=== PATIENT | male | born 1965 | race Caucasian/White ===

== ENCOUNTER 2021-07-22 12:30 | Inpatient (IN) | payer OTHER ==
[~2021-07-22] VITALS: Ht 172.7 cm; Wt 97.4 kg
[2021-07-22 12:30] VITALS: BP 123/64
[~2021-07-22 12:30] MED LIST: ALPRAZolam 0.25 MG (XANAX) TAB PO PRN; BISACODYL 10 MG SUPP (DULCOLAX) PR PRN; CALCIUM CARBONATE 500 MG (TUMS) TAB.CHEW PO PRN; DOCUSATE SODIUM 100 MG (COLACE) CAP PO PRN; FLEET ENEMA ADULT 1 EA BTL PR PRN; LACTULOSE SYRUP 10GM/15ML (ENULOSE) 30ML UDC PO PRN; LOPERAMIDE 2 MG (IMODIUM) TABLET PO PRN; MELATONIN 3 MG TABLET PO PRN; ONDANSETRON 4 MG (ZOFRAN) ORAL DISSOLVE TAB PO PRN; diphenhydrAMINE 25 MG TAB (BENADRYL) PO PRN; guaiFENesin/CODEINE (ROBITUSSIN AC) 10ML UDC PO PRN
[2021-07-22] MEDS ORDERED: LISI20TA26 PO (12:46)
[2021-07-22] MEDS ORDERED: ENOX30DI4 SQ (12:46)
[2021-07-22] MEDS ORDERED: ACHD5005 PO (12:46)
[2021-07-22] MEDS ORDERED: ATOR40TA70 PO (12:46)
[2021-07-22] MEDS ORDERED: MTP25TSR PO (12:46)
[2021-07-22] MEDS ORDERED: METF-397 PO (12:46)
--- NOTE | 2021-07-22 12:56 | PM&R Post Admission Assessment ---
PM&R HP Date of Visit: Jul 22, 2021 Time of Visit: 12:50 History of Present Illness Chief Complaint: Debility following a horse injury HPI: This is a 55yoWM who fell off a horse resulting in a pelvic sacral fracture. Status post ORIF of the pelvic fracture closed reduction of the pelvic ring and sacrum non-weight bearing of the lower extremities. He did have a urethral injury with scrotal edema. Catheter will remain for 4 weeks. He does have diabetes but he doesn't check his sugars much and it's been doing very well. 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 Past Glppels-Gewtka-Hqgfpx Hx Past Med/Social Hx: Reviewed Nursing Past Med/Soc Hx, Reviewed and Corrections made Patient Social History Marrital Status: single Employed/Student: employed Alcohol Use: Denies Use Smoking Status: Never a Smoker Past Medical History Surgeries: Orthopedic Cardiac: Hypertension Endocrine: Diabetes, Non-Insulin dep PM&R Allergy/Meds/Data Review Allergies Coded Allergies: No Known Drug Allergies (Unverified , 07/22/21) Home Medications Scheduled Atorvastatin Calcium (Atorvastatin Calcium), 40 MG PO HS, (Reported) Enoxaparin Sodium (Enoxaparin Sodium), 30 MG SQ Q12H, (Reported) Lisinopril (Lisinopril), 20 MG PO DAILY, (Reported) Metformin HCl (Metformin HCl), 500 MG PO BID, (Reported) Metoprolol Succinate (Metoprolol Succinate), 25 MG PO DAILY, (Reported) Scheduled PRN Hydrocodone/Acetaminophen (Hydrocodone-Acetamin 5-325 mg), 1 TAB PO Q4H PRN for PAIN-MODERATE (5-7), (Reported) Current Medications Current Medications Reviewed Review of Systems Constitutional: see HPI, malaise, weakness EENTM: no symptoms reported Respiratory: no symptoms reported Cardiovascular: no symptoms reported Gastrointestinal: no symptoms reported Genitourinary: pain Musculoskeletal: back pain, joint pain Skin: no symptoms reported Psychiatric/Neurological: No Symptoms Reported All Other Systems Reviewed Negative Unless Noted: Yes Physical Exam Physical Exam Vital Signs Capillary Refill : Height, Weight, BMI Height: '" Weight: lbs. oz. kg; BMI Method: General Appearance: No Apparent Distress, WD/WN Eyes: Bilateral Eye Normal Inspection, Bilateral Eye PERRL HEENT: PERRL/EOMI, Normal ENT Inspection, Pharynx Normal Neck: Full Range of Motion, Normal Inspection, Non Tender, Supple, Carotid Bruit Respiratory: Chest Non Tender, Lungs Clear, Normal Breath Sounds, No Accessory Muscle Use, No Respiratory Distress Cardiovascular: Regular Rate, Rhythm, No Edema, No Gallop, No JVD, No Murmur, Normal Peripheral Pulses Gastrointestinal: Normal Bowel Sounds, No Organomegaly, No Pulsatile Mass, Non Tender, Soft Back: Normal Inspection, Decreased Range of Motion Extremity: Normal Capillary Refill, Normal Inspection, Non Tender, No Calf Tenderness, No Pedal Edema, Other (limited ROM lower extremities due to pain) Neurologic/Psychiatric: Alert, Oriented x3, Normal Mood/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, 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 Norm as Tested, Abnormal Gait, Motor Weakness Skin: Normal Color, Warm/Dry Lymphatic: No Adenopathy PM&R Medical Assessment & Plan REHAB/MEDICAL ASSESSMENT AND PLAN: REHAB IMPAIRMENT GROUP: Pelvic fracture ETIOLOGIC DIAGNOSIS: Pelvic fracture The comorbidities that impact the patients function and/or functional outcome by: DM, elevated BMI, Hematuria, cabrera cath in place 4 weeks, urethral injury REHAB PLAN: The patient is being admitted to our comprehensive inpatient rehabilitation facility and can tolerate the intensity of service consisting of at least: 180 minutes of therapy a day, 5 out of 7 days a week Rehab treatment will consist of: PT OT will focus on regaining function with ambulatory skills along with increasing independence in ADL's in order to return home with family The patient/family has a good understanding of our discharge process and will benefit from an interdisciplinary inpatient rehabilitation program. The patient has potential to make improvement and is in need of at least two of the following multidisciplinary therapies including but not limited to physical, occupational, speech, and prosthetics and orthotics. Additionally the patient will need services from respiratory, nutritional services, wound care, psychology, etc. (Customize this to each patient). Given the patients complex condition and risk of further medical complications, rehabilitation services cannot be safely or effectively provided at a lower level of care such as a jail facility. BARRIERS TO DISCHARGE: weight bearing status ESTIMATED LOS: 7 days DISPOSITION: Home RELEVANT CHANGES SINCE PREADMISSION SCREENING: I have compared the patients medical and functional status at the time of the preadmission screening and there are: no changes PROGNOSIS: Good REHABILITATION GOALS: 1. PT OT will focus on regaining function with ambulatory skills along with increasing independence in ADL's in order to return home with family All the above goals were reviewed with the patient and he/she is in agreement. By signing this document, I acknowledge that I have personally performed a full physical examination on this patient within 24 hours of admission to this inpatient rehabilitation facility and have determined the patient to be able to tolerate the above course of treatment at an intensive level for a reasonable period of time. I will be completing a detailed individualized Plan of Care for this patient by day #4 of the patients stay based upon the Preadmission Screen, the Post-Admission Evaluation, and the therapy evaluations. Admission Dx/Comorbidities: (1) Pelvic fracture ICD Codes: S32.9XXA - Fracture of unspecified parts of lumbosacral spine and pelvis, initial encounter for closed fracture (2) Diabetes ICD Codes: E11.9 - Type 2 diabetes mellitus without complications (3) BMI 33.0-33.9,adult ICD Codes: Z68.33 - Body mass index [BMI] 33.0-33.9, adult Assessment/Plan Assessment and Plan Assess & Plan/Chief Complaint Assessment: Pelvic fracture from fall off horse Urethral injury maintained with cabrera cath for 4 weeks DM HTN Elevated BMI DVT PPx Plan: Rehab protocol Cabrera cath DM management Urology consult JORGE CRONIN DO Jul 22, 2021 12:56
--- OUTSIDE RECORDS SUMMARY | 2021-07-22 12:59 | XMS REPORT | Clinical Summary ---
Author Author [facility] Organization [facility] Address Unknown Phone Unavailable Care Team Providers Care Washroom Operator Name Role Phone Mehdi Restrepo MD Unavailable Lawrence Singleton RN Unavailable Unavailable Chela Ruelas MD PCP Kaelyn Jacobo RN Unavailable Unavailable Source Comments Some departments are not documenting in the electronic medical record. If you d o not see the information that you expected, contact Release of Information in [facility] Information Management department at [phone] for further assistan ce in locating additional records.[facility] Allergies Comments Active Allergy Reactions Severity Noted Date Penicillins HIVES 03/31/2014 Medications End Date Status Medication Sig Dispensed Refills Start Date Active OXYCODONE Take by 0 HCL/ACETAMINOPHEN mouth. (PERCOCET PO) Active HYDROcodone-acetaminophen Take 1-2 Tabs 80 Tab 0 (+) (NORCO) 7.5-325 mg by mouth 4 tablet every 4-6 hours as needed for Pain. Active Problems Problem Noted Date Trimalleolar fracture of right ankle 03/31/2014 Resolved Problems Problem Noted Date Resolved Date Wound dehiscence 06/02/2014 06/19/2014 Medical History Medical History Date Comments Fracture Family History Medical History Relation Name Comments Cancer Mother Cancer Paternal Grandmother Relation Name Status Comments Mother Paternal Grandmother Social History Date Tobacco Use Types Packs/Day Years Used Current Every Day Smoker Cigarettes 0.5 Smokeless Tobacco: Never Used Tobacco Cessation: Ready to Quit: No; Co unseling Given: Yes Comments Alcohol Use Standard Drinks/Week Yes [id number] (1 sta ndard drink = 0.6 oz pure alcohol) Sex Assigned at Date Recorded Not on file Last Filed Vital Signs Reading Time Taken Comments Vital Sign 135/85 08/07/2014 8:49 AM DIPLOMATIC OFFICER Blood Pressure 90 08/07/2014 8:49 AM DIPLOMATIC OFFICER Pulse 36.6 C (97.9 F) 06/04/2014 2:40 PM DIPLOMATIC OFFICER Temperature - - Respiratory Rate 100% 06/04/2014 2:40 PM DIPLOMATIC OFFICER Oxygen Saturation - - Inhaled Oxygen Concentration 90.7 kg (200 lb) 08/07/2014 8:49 AM DIPLOMATIC OFFICER Weight 172.7 cm (5' 8") 08/07/2014 8:49 AM DIPLOMATIC OFFICER Height 30.41 08/07/2014 8:49 AM DIPLOMATIC OFFICER Body Mass Index Plan of Treatment Health Maintenance Due Date Last Done Comments HIV SCREENING 1982 DTAP/TDAP VACCINES (1 - 1985 Tdap) HEPATITIS C SCREENING 1985 PHYSICAL (COMPREHENSIVE) 1985 EXAM COLORECTAL CANCER 2017 SCREENING SHINGLES RECOMBINANT 2017 VACCINE (1 of 2) INFLUENZA VACCINE 02/07/2021 Results Not on filefrom Last 3 Months Advance 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
--- OUTSIDE RECORDS SUMMARY | 2021-07-22 12:59 | XMS REPORT | Clinical Summary ---
Author Author [facility] Organization [facility] Address Unknown Phone Unavailable Care Team Providers Care [employer] Division Manager Name Role Phone No, Pcp COMMUNITY RELATIONS LIAISON PCP Unavailable Allergies No known active allergies Medications Not on file Active Problems Not on file Encounters Not on filefrom Last 3 Months Immunizations Not on file Social History Date Tobacco Use Types Packs/Day Years Used Current Every Day Smoker Comments Alcohol Use Standard Drinks/Week Not Asked 0 (1 standard drink = 0.6 o z pure alcohol) Sex Assigned at Date Recorded Not on file Last Filed Vital Signs Reading Time Taken Comments Vital Sign 124/80 11/16/2014 11:01 AM CDT Blood Pressure 100 11/16/2014 11:01 AM CDT Pulse 36.3 C (97.4 F) 11/16/2014 11:01 AM CDT Temperature 16 11/16/2014 11:01 AM CDT Respiratory Rate 96% 11/16/2014 11:01 AM CDT Oxygen Saturation - - Inhaled Oxygen Concentration - - Weight - - Height - - Body Mass Index Plan of Treatment Not on file Goals Not on file Implants Not on file Procedures Not on filefrom Last 3 Months Results Not on filefrom Last 3 Months Additional Health Concerns Not on file Insurance Type Payer Benefit Subscriber ID Effective Phone Address Plan / Dates Group [place] [id number] [facility] Present (Home) [place] [address] Care Teams Start Date End Date [employer] Division Manager Relationship Specialty 11/16/14 No, Pcp, COMMUNITY RELATIONS LIAISON PCP - General N/A Do not use
--- NOTE | 2021-07-22 14:01 | Physical Therapy Evaluation ---
PT Evaluation-General Medical Diagnosis Admission Date Jul 22, 2021 at 12:30 Medical Diagnosis: PELVIC FX, S/P ORIF Onset Date: Jul 13, 2021 Therapy Diagnosis Therapy Diagnosis: impaired mobility, endurance Weight Bear Status Right Lower Extremity: Right Non Weight Bearing Left Lower Extremity: Left Non Weight Bearing also no bending, twisting, and 10# lifting limit Referral Physician: Sandra Avery DO Reason for Referral: Evaluation/Treatment Medical History Pertinent Medical History: DM, HTN Additional Medical History hyperlipidemia, COVID (2020) Current History fall from horse without LOC, fractured pelvic and sacral bones. s/p ORIF pelvic fracture, closed reduction percutaneous fixation posterior pelvic ring and sacrum. Urethral injury, scrotal edema Reviewed History: Yes Social History Home: Single Level Current Living Status: Alone Entry Into Home: Stairs With Railing Patient states he has several stairs to enter his home but that he would not be able to go there because it is not built right to get around in a wheelchair, he says most likely he will have to go stay with one of his siblings Prior Prior Level of Function SCALE: Activities may be completed with or without assistive devices. 1-Giqzgdddfw-farhfuz completes the activity by him/herself with no assistance from a helper. 5-Set-up or Clean-up Assistance-helper sets up or cleans up; patient completes activity. Fleming assists only prior to or following the activity. 4-Supervision or Touching Assistance-helper provides verbal cues and/or touching/steadying and/or contact guard assistance as patient completes activity. Assistance may be provided throughout the activity or intermittently. 3-Partial/Moderate Assistance-helper does LESS THAN HALF the effort. Fleming lifts, holds or supports trunk or limbs, but provides less than half the effort. 2-Substantial/Maximal Assistance-helper does MORE THAN HALF the effort. Fleming lifts or holds trunk or limbs and provides more than half the effort. 2-Btcvojwbq-himtcb does ALL the effort. Patient does none of the effort to complete the activity. Or, the assistance of 2 or more helpers is required for the patient to complete the activity. If activity was not attempted, code reason: 7-Patient Refused. 9-Not Applicable-not attempted and the patient did not perform the activity before the current illness, exacerbation or injury. 10-Not Attempted due to Environmental Limitations-(lack of equipment, weather restraints, etc.). 88-Not Attempted due to Medical Conditions or Safety Concerns. Bed Mobility: 6 Transfers (B,C,W/C): 6 Gait: 6 Stairs: 6 Indoor Mobility (Ambulation): Independent Stairs: Independent PT Evaluation-Current Subjective Patient in bed pre tx, agrees to PT, has no complaints of pain at rest, states that he mostly just has pain with pressure caused by bending over or sitting on a hard surface. Will be co-treating with OT due to poor patient mobility, endurance, coordinate UE and LE during activity, safety and reduce risk of falls. Pt/Family Goals to be independent at home Objective Patient Orientation: Person, Place, Situation ROM/Strength ROM Lower Extremities WNL Strength Lower Extremities LLE (hip flexion 3/5, knee flexion 5/5, knee extension 5/5, dorsiflexion 5/5), RLE (hip flexion 3/5, knee flexion 5/5, knee extension 5/5, dorsiflexion 5/5) Sensory Vision: Functional Hearing: Impaired Sensation Right Lower Extremit: Intact Sensation Left Lower Extremity: Intact Transfers Roll Left & Right (QC): 6 Sit to Lying (QC): 4 Lying to Sitting/Side of Bed(Q: 4 Sit to Stand (QC): 88 Chair/Jhl-kt-Mxgaf Xfer(QC): 4 Toilet Transfer (QC): 4 Car Transfer (QC): 4 Patient performs rolling with independence, supine <-> sit with SBA (using a leg deicer element winder machine), sliding board transfer with SBA (also does this for toilet and car transfer), needs occasional cues for better board placement or safety positioning Gait Does the Patient Walk?: No and Walking Goal NOT indicated Walk 10 feet (QC): 88 Walk 50 ft with 2 Turns(QC): 88 Walk 150 ft (QC): 88 Walking 10ft/uneven surface-QC: 88 Wheelchair Training Does the Pt Use a Wheelchair?: Yes Distance: 600' Wheel 50 ft with 2 turns (QC): 6 Wheel 150 ft (QC): 6 Type of Wheelchair: Manual Patient can propel a manual WC 600' with independence, including down and up a ramp, he is strong enough to propel forward using only his arms going up the ramp, however he does get SOB fairly quickly and needs frequent rest breaks Stairs 1 Step (curb) (QC): 88 4 Steps (QC): 88 12 Steps (QC): 88 Balance Sitting Static: Normal Sitting Dynamic: Normal Picking up an Object (QC): 88 Treatment PT performed bed mobility and transfers, WC mobility, trunk strengthening and balance training with balloon activity, positioning and safety during dressing, OT performed dressing, balloon activity, UE positioning and safety during activity. Assessment/Needs Patient in WC at bedside post tx with a late lunch, has nurse call, phone, tray, all needs met. Patient has impaired mobility, endurance. He can perform a sliding board transfer with SBA. Rehab Potential: Fair PT Short Term Goals Short Term Goals Time Frame: Jul 29, 2021 Roll Left & Right: 6 Sit to lyin Lying to sitting on side of be: 5 Chair/duw-ct-wunhi transfer: 5 PT Websphere Administrator Goals Websphere Administrator Goals PT Jail Goals Time Frame: Aug 12, 2021 Roll Left & Right (QC): 6 Sit to Lying (QC): 6 Lying-Sitting on Side/Bed(QC): 6 Sit to Stand (QC): 88 Chair/Hym-rt-Pkknv Xfer(QC): 6 Toilet Transfer (QC): 6 Car Transfer (QC): 6 Does the Patient Walk: No and Walking Goal NOT indicated Walk 10 feet (QC): 88 Walk 50ft with 2 Turns (QC): 88 Walk 150 ft (QC): 88 Walking 10ft on Uneven Surface: 88 1 Step (curb) (QC): 88 4 Steps (QC): 88 12 Steps (QC): 88 Picking up an Object (QC): 88 Wheel 50 feet with 2 turns (QC: 6 Wheel 150 feet: 6 PT Plan Problem List Problem List: Activity Tolerance, Functional Strength, Safety, Balance, Gait, Transfer, Bed Mobility, ROM Treatment/Plan Treatment Plan: Continue Plan of Care Treatment Plan: Bed Mobility, Education, Functional Activity [place], Functional Strength, Group Therapy, Safety, Therapeutic Exercise, Transfers Treatment Duration: Aug 12, 2021 Frequency: At least 5 of 7 days/Wk (IRF) Estimated Hrs Per Day: 1.5 hours per day Patient and/or Family Agrees t: Yes Safety Risks/Education Patient Education: Transfer Techniques, Reviewed Precautions, Correct Positioning, W/C Management, Safety Issues Teaching Recipient: Patient Teaching Methods: Demonstration, Discussion Response to Teaching: Reinforcement Needed Discharge Recommendations Plan Patient will perform bed mobility and transfer training, balance and endurance training, functional strengthening, WC mobility training, and education, to improve functional mobility and independence at home. Therapy Discharge Recommendati: Scheduled Assistance, Home & Family, Post Acute PT Time/GCodes Time In: 1230 Time Out: 1410 Total Billed Treatment Time: 90 Total Billed Treatment 1 visit EVM 10' EX 15' FA 65' MARNIE KNIGHT PT Jul 22, 2021 14:01
--- NOTE | 2021-07-22 14:03 | Occupational Therapy Eval ---
OT Evaluation-General/PLF Medical Diagnosis Admission Date Jul 22, 2021 at 12:30 Medical Diagnosis: pelvic fxs s/p ORIF Onset Date: Jul 12, 2021 Therapy Diagnosis Therapy Diagnosis: decreased ADL status Precautions Comments no bending, lifting >10 lb, or twisting Weight Bear Status Weight Bearing Restriction: Non Weight Bearing Location Restriction: LE Bilateral Referral Physician: Gena Rocha Reason: Evaluation/Treatment Medical History Pertinent Medical History: DM, HTN Additional Medical History hyperlipidemia, COVID (2020) Current History fall from horse without LOC, fractured pelvic and sacral bones. s/p ORIF pelvic fracture, closed reduction percutaneous fixation posterior pelvic ring and sacrum. Urethral injury, scrotal edema Social History Home: Single Level Current Living Status: Alone Entry Into Home: Stairs With Railing (several steps into house) ADL-Prior Level of Function SCALE: Activities may be completed with or without assistive devices. 4-Rgkqylwcll-otrpwar completes the activity by him/herself with no assistance from a helper. 5-Set-up or Clean-up Assistance-helper sets up or cleans up; patient completes activity. [place] assists only prior to or following the activity. 4-Supervision or Touching Assistance-helper provides verbal cues and/or touching/steadying and/or contact guard assistance as patient completes activity. Assistance may be provided throughout the activity or intermittently. 3-Partial/Moderate Assistance-helper does LESS THAN HALF the effort. [place] lifts, holds or supports trunk or limbs, but provides less than half the effort. 2-Substantial/Maximal Assistance-helper does MORE THAN HALF the effort. [place] lifts or holds trunk or limbs and provides more than half the effort. 8-Lcxhkikbv-rdsnfr does ALL the effort. Patient does none of the effort to complete the activity. Or, the assistance of 2 or more helpers is required for the patient to complete the activity. If activity was not attempted, code reason: 7-Patient Refused. 9-Not Applicable-not attempted and the patient did not perform the activity before the current illness, exacerbation or injury. 10-Not Attempted due to Environmental Limitations-(lack of equipment, weather restraints, etc.). 88-Not Attempted due to Medical Conditions or Safety Concerns. ADL PLOF Comments Pt reports IND with ADLs and functional mobility at PLOF, no AD/AE. He indicates his home is not appropriate for a w/c, so he may have to go to a siblings house. His house has a tub/shower. Self Care: Independent Functional Cognition: Independent DME/Equipment: Tub/Shower OT Current Status Subjective Pt in bed, agreeable to OT tx and OT/PT cotreat. Reports some pain in pelvis, but does not provide pain rating. Mental Status/Objective Patient Orientation: Person, Place, Time, Situation Attachments: Hoffman Catheter Current Glasses/Contacts: No Hearing Aids: Yes Dentures/Partials: No Hand Dominance: Right Upper Extremity ROM WFL, BUE shoulder flexion to approx 160 degrees Upper Extremity Coordination WFL Upper Extremity Sensation WFL, pt denies tingling/numbness Upper Extremity Strength WFL, BUE grossly 5/5 ADL-Treatment Eating (QC): 6 (IND with lunch) Oral Hygiene (QC): 7 Shower/Bathe Self (QC): 7 Upper Body Dressing (QC): 5 (set up pick pulling machine operator shirt.) Lower Body Dressing (QC): 3 (Min A. Assist to thread LLE, pt threaded RLE using wet process miller head, then rolled side to side for pant hike at bed level.) On/Off Footwear (QC): 5 (set up with wet process miller head and sock aide with gripper socks.) Toileting Hygiene (QC): 7 Other Treatments OT evaluation complete. OT/PT cotreat due to skill of 2 clinicians required which a rehabilitation team lead could not perform in order to focus on dynamic sitting balance, w/c mobility, transfers, and higher level sitting balance tasks. OT focused on UE placement, cues for sequencing and safety, and ADLs, PT focused on LE placement, transfers/mobility, and sitting balance. Pt completed LE dressing at bed level, using a wet process miller head, then transferred supine to sit EOB using a leg spindraw operator. Pt used SB to transfer to w/c with SBA. Pt performed w/c mobility around ARU common area, to elevators, up/down hallway of 1st floor and up/down ramp. Pt returned to ARU, transferring to therapy mat using SB. Pt completed footwear using AE. In order to increase dynamic sitting balance and reaching, pt utilized RUE to reach for rings in various planes, unsupported on EOB. Pt reports increased pain in pelvic region. Pt used SB to transfer back to w/c where he was more supported with back rest. Pt then used BUEs to complete balloon toss, x3 rounds reaching in various planes. Pt propelled w/c back to his room, lunch had arrived. Post tx, pt in w/c eating lunch, call light in reach and all needs met. Rolling in bed independently, SBA supine <-> sit with SBA using leg spindraw operator, SBA SB transfers, occasional cues required for board placement and safety of pos itioning. W/C mobility 500' independently. Education OT Patient Education: Correct positioning, Energy conservation, Exercise program, Modified ADL techniques, Progress toward Goal/Update tx plan, Purpose of tx/functional activities, Rehab process Teaching Recipient: Patient Teaching Methods: Discussion Response to Teaching: Verbalize Understanding OT Short Term Goals Short Term Goals Time Frame: Jul 28, 2021 Toileting hygiene: 4 Shower/bathe self: 4 Lower body dressin OT Harness And Bag Inspector Goals Harness And Bag Inspector Goals Time Frame: Aug 06, 2021 Eating (QC): 6 Oral Hygiene (QC): 6 Toileting Hygiene (QC): 6 Shower/Bathe Self (QC): 6 Upper Body Dressing (QC): 6 Lower Body Dressing (QC): 6 On/Off Footwear (QC): 6 Additional Goals: 1-Demonstrate ADL Tasks, 2-Verbalize Understanding, 3- ImproveStrength/[place] 1=Demonstrate adherence to instructed precautions during ADL tasks. 2=Patient will verbalize/demonstrate understanding of assistive devices/modifications for ADL. 3=Patient will improve strength/tolerance for activity to enable patient to perform ADL's. OT Education/Plan Problem List/Assessment Assessment: Decreased Activ Tolerance, Impaired Funct Balance, Impaired I ADL's, Impaired Self-Care Skills Discharge Recommendations Plan/Recommendations: Continue POC Equpiment Recommendations-D/C: Extended Bath Bench, Bath Chair Comment Bath bench vs bath chair depending on discharge location. Treatment Plan/Plan of Care Patient would benefit from OT for education, treatment and training to promote independence in ADL's, mobility, safety and/or upper extremity function for ADL's. Plan of Care: ADL Retraining, Functional Mobility, Group Exercise/Act as Ind, UE Funct Exercise/Act Treatment Duration: Aug 06, 2021 Frequency: At least 5 of 7 days/Wk (IRF) Estimated Hrs Per Day: 1.5 hours per day Agreement: Yes Rehab Potential: Good Time/GCodes Start Time: 12:40 Stop Time: 14:10 Total Time Billed (hr/min): 90 Billed Treatment Time 8902-0236 OT eval (10'), [id number] OT/PT cotreat (80') 1, EVL (10'), ADL (20'), FA 4 (60') YAHIR CABRERA OT Jul 22, 2021 14:03
[2021-07-22] MEDS: HYDROcodone/APAP 5 MG/325 MG (LORTAB) TAB PO PRN ×2 (15:21→19:44)
[2021-07-22] MEDS: metFORMIN 500 MG (GLUCOPHAGE) TAB PO SCH (18:10)
[2021-07-22] MEDS: ENOXAPARIN 30 MG/0.3 ML (LOVENOX) SYR SQ SCH (18:10)
[2021-07-22] MEDS: SENNA W/DOCUSATE (SENOKOT S) TABLET PO SCH (19:43)
[2021-07-22] MEDS: DOCUSATE SODIUM 100 MG (COLACE) CAP PO SCH (20:04)
[2021-07-22] MEDS: polyethylene glycoL POWDER 17 GM (MIRALAX) PACK PO SCH (20:05)
[2021-07-22 20:36] VITALS: BP 136/76
[2021-07-23] MEDS: HYDROcodone/APAP 5 MG/325 MG (LORTAB) TAB PO PRN ×3 (02:19→21:10)
--- NOTE | 2021-07-23 05:47 | Individualized Plan of Care ---
Individualized Plan of Care Rehab Nursing IPOC Order Admission Date Jul 22, 2021 at 12:30 Current Orders Orders Admission Order(Inpt,Obs,Sdc) (07/22/21 10:43) Vital Signs: Per Unit Policy ( 08,16,00 (07/22/21 10:43) Segundo Perez , (07/22/21 10:43) Sequential Compression Device (07/22/21 10:43) Nurse Practitioner Physician Assistant-Inpt Rehab Con (07/22/21 10:43) Rehab Nursing Orders-Ipoc (07/22/21 10:43) Physical Therapy Rehab Orders (07/22/21 10:43) Occupational Therapy Rehab Ord (07/22/21 10:43) Speech Therapy Rehab Orders (07/22/21 10:43) Cbc With Automated Diff (07/23/21 06:00) Comprehensive Metabolic Panel (07/23/21 06:00) Precautions (Aru) (07/22/21 10:43) Weekly Weight WEEK (07/22/21 10:43) Rehab-Intensity Of Therapy (07/22/21 10:43) Initiate Admission Nursing Pro .admission (07/22/21 10:43) Alprazolam Tablet (Xanax Tablet) (07/22/21 10:45) Calcium Carbonate Chew Tablet (Antacid C (07/22/21 10:45) Diphenhydramine Tablet (Benadryl Tablet) (07/22/21 10:45) Docusate Sodium Capsule (Colace Capsule) (07/22/21 21:00) Docusate Sodium Capsule (Colace Capsule) (07/22/21 10:45) Bisacodyl Suppository (Dulcolax Supposit (07/22/21 10:45) Lactulose Oral Solution (Enulose Oral So (07/22/21 10:45) Na Phos/Na Biphos Enema (Fleet Enema Jose (07/22/21 10:45) Guaifenesin/Codeine Syrup (Robitussin Ac (07/22/21 10:45) Loperamide Tablet (Imodium Tablet) (07/22/21 10:45) Melatonin Tablet (Melatonin Tablet) (07/22/21 10:45) Polyethylene Glycol Powder Pkt (Miralax (07/22/21 21:00) Ondansetron Oral Dissolve Tab (Zofran (07/22/21 10:45) Senna S Tablet (Senokot S Tablet) (07/22/21 21:00) Acetaminophen Tablet/Caplet (Tylenol T (07/22/21 10:45) Code/Resuscitation (07/22/21 10:43) Sequential Compression Device ONCE (07/22/21 10:43) Initiate Admission Nursing Pro .admission (07/22/21 10:43) Admission Arrival Bed Request (07/22/21 12:38) General/Regular (07/22/21 Lunch) Atorvastatin Tablet (Lipitor Tablet) (07/22/21 21:00) Enoxaparin Injection (Lovenox Injection) (07/22/21 18:00) Hydrocodone/Apap 5/325 Tablet (Lortab 5 (07/22/21 13:00) Lisinopril Tablet (Zestril Tablet) (07/23/21 09:00) Metformin Tablet (Glucophage Tablet) (07/22/21 18:00) Metoprolol Succinate (Xl) Tab (Toprol Xl (07/23/21 09:00) Patient Visit (07/22/21 ) Pt Eval Moderate Complexity (07/22/21 ) Exercise Therap, Ea 15 Min (07/22/21 ) Functional Activities, Ea 15 (07/22/21 ) Nursing Communication (Order) (07/22/21 15:42) Follow-Up Appointment (07/22/21 16:58) Patient Visit (07/23/21 ) Exercise Therap, Ea 15 Min (07/23/21 ) Functional Activities, Ea 15 (07/23/21 ) Patient Visit (07/23/21 ) Exercise Therap, Ea 15 Min (07/23/21 ) Rehab Nursing Orders: Ongoing Assess. of Cognitive Status, Ongoing Assess. of Function Status, Bladder Management, Bladder Scan, Bladder Training, Bowel Management, Bowel Training, Disease Management & Educaiton, DVT Prophylaxis, Fall Prevention, Fluid/Electrolyte/Nutrition Mgmt, Infection Prevention, Medication Management & Education, Management of Risks & Complications, Management of Skin Intergrity, Nutrition Management, Pain Management, Patient/Family Support, Safety Management, Wound Management Intensity of Therapy to be met Patient to be seen: Min.3h per day/5 of 7d PT IPOC Problem List: Activity Tolerance, Functional Strength, Safety, Balance, Gait, Transfer, Bed Mobility, ROM Treatment Plan: Continue Plan of Care Bed Mobility, Education, Functional Activity [place], Functional Strength, Group Therapy, Safety, Therapeutic Exercise, Transfers Treatment Duration: Aug 12, 2021 Frequency: At least 5 of 7 days/Wk (IRF) Estimated Hrs Per Day: 1.5 hours per day OT IPOC Problems: Decreased Activ Tolerance, Impaired Funct Balance, Impaired I ADL's, Impaired Self-Care Skills OT Treatment, Training and Edu: Yes Plan of Care: ADL Retraining, Functional Mobility, Group Exercise/Act as Ind, UE Funct Exercise/Act Treatment Duration: Aug 06, 2021 Frequency: At least 5 of 7 days/Wk (IRF) Estimated Hrs Per Day: 1.[address] IPOC Speech Therapy Treatment Plan: Discontinue ST Treatment Duration: Jul 23, 2021 Frequency: Modified Program (IRF) Estimated Hrs Per Day: Other Nurse Practitioner Physician Assistant/Case Mgmt Nurse Practitioner Physician Assistant/Case Managemen: Discharge Planning Dietitian/Prawn Trawler Hand Dietitian/Prawn Trawler Hand to monitor nutritional status and make changes and/or recommendations as needed and work with speech pathology on dietary upgrades as the occur. Physician IPOC Medical Issues being managed closely and that require the 24 hour availability of a physician: Recent catastrophic injuries from horse fall will require close monitoring for DVT prophylaxis in addition for indwelling Hoffman catheter infectious risk monitoring Medical Issues: Bowel/Bladder Function, DVT Prophylaxis, Falls Precautions, Fluid/Electrolyte/Nutrition Balance, Infection Protection, Pain Management, Swallowing Precautions, Wound Care Brief Synthesis of Preadmission Screen, Post-Admission Evaluation, and Therapy Evaluations: PT and OT will focus on return of independent skills while nonweightbearing status along with wheelchair mobility skills. Medical Prognosis: Good Anticipated Length of Stay: 10 days JORGE CRONIN DO Jul 23, 2021 05:47
--- NOTE | 2021-07-23 05:47 | PM&R Progress Note ---
Subjective HPI/CC On Admission Date Seen by Provider: Jul 23, 2021 Time Seen by Provider: 10:00 Subjective/Events-last exam 07/23/2021: Patient doing really well Moving around pretty well with weightbearing restriction Cabrera catheter in place Pain is pretty well controlled Working with therapy Review of Systems General: Fatigue, Malaise Musculoskeletal: arm pain, hand pain Objective Exam Vital Signs Vital Signs Date Time Temp Pulse Resp B/P (MAP) Pulse Ox O2 Delivery O2 Flow Rate FiO2 07/23/21 20:20 91 Room Air 07/23/21 20:00 36.4 113 16 104/70 (81) Capillary Refill : General Appearance: No Apparent Distress, WD/WN HEENT: PERRL/EOMI, Normal ENT Inspection, Pharynx Normal Neck: Full Range of Motion, Normal Inspection, Non Tender, Supple, Carotid Bruit Respiratory: Chest Non Tender, Lungs Clear, Normal Breath Sounds, No Accessory Muscle Use, No Respiratory Distress Cardiovascular: Regular Rate, Rhythm, No Edema, No Gallop, No JVD, No Murmur, Normal Peripheral Pulses Gastrointestinal: Normal Bowel Sounds, No Organomegaly, No Pulsatile Mass, Non Tender, Soft Back: Normal Inspection, Decreased Range of Motion Extremity: Normal Capillary Refill, Normal Inspection, Non Tender, No Calf Tenderness, No Pedal Edema, Other (limited ROM lower extremities due to pain) Neurologic/Psychiatric: Alert, Oriented x3, Normal Mood/Affect, margin clerk II-XII Norm as Tested, Abnormal Gait, Motor Weakness Skin: Normal Color, Warm/Dry Lymphatic: No Adenopathy Results/Procedures Lab Laboratory Tests 07/23/21 05:53 Patient resulted labs reviewed. FIM Transfers Therapy Code Descriptions/Definitions Functional [place] Measure: 0=Not Assessed/NA 4=Minimal Assistance 1=Total Assistance 5=Supervision or Setup 2=Maximal Assistance 6=Modified [place] 3=Moderate Assistance 7=Complete IndependenceSCALE: Activities may be completed with or without assistive devices. 9-Votimhesjm-kskfjmj completes the activity by him/herself with no assistance from a helper. 5-Set-up or Clean-up Assistance-helper sets up or cleans up; patient completes activity. [place] assists only prior to or following the activity. 4-Supervision or Touching Assistance-helper provides verbal cues and/or touching/steadying and/or contact guard assistance as patient completes activity. Assistance may be provided throughout the activity or intermittently. 3-Partial/Moderate Assistance-helper does LESS THAN HALF the effort. [place] lifts, holds or supports trunk or limbs, but provides less than half the effort. 2-Substantial/Maximal Assistance-helper does MORE THAN HALF the effort. [place] lifts or holds trunk or limbs and provides more than half the effort. 9-Pltgpdaab-ccqoas does ALL the effort. Patient does none of the effort to complete the activity. Or, the assistance of 2 or more helpers is required for the patient to complete the activity. If activity was not attempted, code reason: 7-Patient Refused. 9-Not Applicable-not attempted and the patient did not perform the activity before the current illness, exacerbation or injury. 10-Not Attempted due to Environmental Limitations-(lack of equipment, weather restraints, etc.). 88-Not Attempted due to Medical Conditions or Safety Concerns. Roll Left to Right (QC): 6 Sit to Lying (QC): 4 Sit to Stand (QC): 88 Chair/Rjs-sr-Gqipp Xfer(QC): 4 Car Transfer (QC): 4 Gait Training Does the Patient Walk?: No and Walking Goal NOT indicated Walk 10 feet (QC): 88 Walk 50 ft with 2 Turns(QC): 88 Walk 150 ft (QC): 88 Walking 10ft/uneven surface-QC: 88 Wheelchair Training Does the Pt Use a Wheelchair?: Yes Distance: 600' Wheel 50 ft with 2 turns (QC): 6 Wheel 150 ft (QC): 6 Type of Wheelchair: Manual Stair Training 1 Step (curb) (QC): 88 4 Steps (QC): 88 12 Steps (QC): 88 Balance Picking up an Object (QC): 88 ADL-Treatment Eating (QC): 6 (IND with lunch) Oral Hygiene (QC): 7 Shower/Bathe Self (QC): 7 Upper Body Dressing (QC): 5 (set up bleach boiler puller shirt.) Lower Body Dressing (QC): 3 (Min A. Assist to thread LLE, pt threaded RLE using manifold builder, then rolled side to side for pant hike at bed level.) On/Off Footwear (QC): 5 (set up with manifold builder and sock aide with gripper socks.) Toileting Hygiene (QC): 7 Assessment/Plan Assessment and Plan Assess & Plan/Chief Complaint Assessment: Pelvic fracture from fall off horse Urethral injury maintained with cabrera cath for 4 weeks DM HTN Elevated BMI DVT PPx Plan: Rehab protocol Cabrera cath DM management Urology consult 07/23/2021: Rehab protocol Cabrera cath for 4 weeks due to urethral injury (1) Pelvic fracture (2) Diabetes (3) BMI 33.0-33.9,adult JORGE CRONIN DO Jul 23, 2021 05:46
[2021-07-23 06:49] LABS: BASOPHILS # (AUTO) 0.1 10^3/uL (0.0-0.1); BASOPHILS % (AUTO) 1 % (0-10); EOSINOPHILS # (AUTO) 0.2 10^3/uL (0.0-0.3); EOSINOPHILS % (AUTO) 1 % (0-10); HEMATOCRIT 35 % (40-54); LYMPHOCYTES # (AUTO) 2.3 10^3/uL (1.0-4.0); LYMPHOCYTES % (AUTO) 18 % (12-44); MEAN CORPUSCULAR HEMOGLOBIN 28 pg (25-34); MEAN CORPUSCULAR HGB CONC 32 g/dL (32-36); MEAN CORPUSCULAR VOLUME 88 fL (80-99); MEAN PLATELET VOLUME 9.4 fL (9.0-12.2); MONOCYTES # (AUTO) 1.2 10^3/uL (0.0-1.0); MONOCYTES % (AUTO) 9 % (0-12); NEUTROPHILS # (AUTO) 8.8 10^3/uL (1.8-7.8); NEUTROPHILS % (AUTO) 68 % (42-75); PLATELET COUNT 714 10^3/uL (130-400); WHITE BLOOD COUNT 12.9 10^3/uL (4.3-11.0)
[2021-07-23] MEDS: ENOXAPARIN 30 MG/0.3 ML (LOVENOX) SYR SQ SCH ×2 (06:49→17:27)
[2021-07-23 07:07] LABS: ALBUMIN 3.8 GM/DL (3.2-4.5); BILIRUBIN,TOTAL 0.6 MG/DL (0.1-1.0); CALCIUM 9.6 MG/DL (8.5-10.1); CREATININE SERUM 0.86 MG/DL (0.60-1.30); POTASSIUM 4.6 MMOL/L (3.6-5.0); TOTAL PROTEIN 7.9 GM/DL (6.4-8.2)
[2021-07-23 07:24] VITALS: BP 131/74
--- NOTE | 2021-07-23 08:40 | IRF PAI BIMS ---
BIMS BIMS IRF ABDULKADIR BIMS: IRF ABDULKADIR BIMS Response (Comments) Value Expression of Ideas and Wants (Verbal/Non Verbal) Without Difficulty 3 Understanding Verbal Content Understands 3 Should Brief Interview for Mental Status be Conducted Yes Repitition of Three Words Three 3 What year is it right now? Correct 0 What month is it right now? Accurate within 5 days 0 What week is it now? Correct 0 Recalls Socks Yes, No Cue Required 2 Recalls Blue Yes, No Cue Required 2 Recalls Bed Yes, No Cue Required 2 Total 15 Brief Interview/Mental Status: No YAHIR CABRERA OT Jul 23, 2021 08:40
[2021-07-23] MEDS: lisINopril 20 MG (PRINIVIL) TABLET PO SCH (08:50)
[2021-07-23] MEDS: SENNA W/DOCUSATE (SENOKOT S) TABLET PO SCH ×2 (08:50→20:13)
[2021-07-23] MEDS: metFORMIN 500 MG (GLUCOPHAGE) TAB PO SCH ×2 (08:50→17:27)
[2021-07-23] MEDS: polyethylene glycoL POWDER 17 GM (MIRALAX) PACK PO SCH ×2 (08:50→20:13)
[2021-07-23] MEDS: DOCUSATE SODIUM 100 MG (COLACE) CAP PO SCH ×2 (08:50→20:12)
--- NOTE | 2021-07-23 09:38 | Occupational Ther Daily Note ---
OT Current Status-Daily Note Subjective Pt supine in bed. Pt states he's in a lot of pain but is agreeable to OT tx. Pt did not verbalize pain rating. Mental Status/Objective Patient Orientation: Person, Place, Time, Situation Attachments: Hoffman Catheter ADL-Treatment Therapy Code Descriptions/Definitions Functional [place] Measure: 0=Not Assessed/NA 4=Minimal Assistance 1=Total Assistance 5=Supervision or Setup 2=Maximal Assistance 6=Modified [place] 3=Moderate Assistance 7=Complete IndependenceSCALE: Activities may be completed with or without assistive devices. 5-Xdyvqtxvjm-plkdfqf completes the activity by him/herself with no assistance from a helper. 5-Set-up or Clean-up Assistance-helper sets up or cleans up; patient completes activity. [place] assists only prior to or following the activity. 4-Supervision or Touching Assistance-helper provides verbal cues and/or touching/steadying and/or contact guard assistance as patient completes activity. Assistance may be provided throughout the activity or intermittently. 3-Partial/Moderate Assistance-helper does LESS THAN HALF the effort. [place] lifts, holds or supports trunk or limbs, but provides less than half the effort. 2-Substantial/Maximal Assistance-helper does MORE THAN HALF the effort. [place] lifts or holds trunk or limbs and provides more than half the effort. 4-Pnpgchcsv-ujyjqj does ALL the effort. Patient does none of the effort to complete the activity. Or, the assistance of 2 or more helpers is required for the patient to complete the activity. If activity was not attempted, code reason: 7-Patient Refused. 9-Not Applicable-not attempted and the patient did not perform the activity before the current illness, exacerbation or injury. 10-Not Attempted due to Environmental Limitations-(lack of equipment, weather restraints, etc.). 88-Not Attempted due to Medical Conditions or Safety Concerns. Oral Hygiene (QC): 6 (IND seated at sink.) Bathing Location: L Arm, R Arm, L Upper Leg, R Upper Leg, L Lower Leg (including foot), R Lower Leg (including foot), Chest, Abdomen, Buttocks, Perineal Area Shower/Bathe Self (QC): 2 (Sponge bath in bed, max A needed to clean buttocks, back and feet. ) Upper Body Dressing (QC): 5 (Setup) Lower Body Dressing (QC): 5 (Setup with threading catheter, pt able to use AE at bed level) On/Off Footwear: 5 (set up.) Other Treatment Pt supine in bed. Pt doffed gown and socks. Pt completed sponge bath in bed, max A needed to clean buttocks, feet and back. Pt donned shirt, pants and socks, AE. Pt transitioned to W/C from bed using SB, transitioned to bathroom to complete oral care, shaving and washed his face. [place] due to skill of 2 clinicians required which a veterans rehabilitation counselor could not perform in order to increase activity tolerance, core strength, and dynamic sitting balance. OT focused on using AE, UE placement, cues for sequencing/safety, PT focused on mobility/transfers. Pt propelled W/C to therapy gym, he completed unsupported lateral bending to place objects on the table. Pt propelled W/C around room and then around commons area to pick and shovel man mejia bags at various levels using a marriage counselor minister to work on unsupported bending and using AE with reaching to complet the functional task. Pt propelled W/C to therapy gym and completed the arm bike to work on arm strengthening and activity tolerance, 25 ariza, 10 mins, 1 rest break needed, while sitting without lateral and posterior support. Post OT tx, pt in W/C with PT, all needs met. Education OT Patient Education: Correct positioning, Energy conservation, Exercise program, Modified ADL techniques, Progress toward Goal/Update tx plan, Purpose of tx/functional activities, Reviewed precautions, Rehab process, Use of adapted equipment Teaching Recipient: Patient Teaching Methods: Demonstration, Discussion Response to Teaching: Verbalize Understanding, Return Demonstration OT Short Term Goals Short Term Goals Time Frame: Jul 28, 2021 Toileting hygiene: 4 Shower/bathe self: 4 Lower body dressin OT Fpc Goals Fpc Goals Time Frame: Aug 06, 2021 Eating (QC): 6 Oral Hygiene (QC): 6 Toileting Hygiene (QC): 6 Shower/Bathe Self (QC): 6 Upper Body Dressing (QC): 6 Lower Body Dressing (QC): 6 On/Off Footwear (QC): 6 Additional Goals: 1-Demonstrate ADL Tasks, 2-Verbalize Understanding, 3- ImproveStrength/[place] 1=Demonstrate adherence to instructed precautions during ADL tasks. 2=Patient will verbalize/demonstrate understanding of assistive devices/modifications for ADL. 3=Patient will improve strength/tolerance for activity to enable patient to perform ADL's. OT Education/Plan Problem List/Assessment Assessment: Decreased Activ Tolerance, Impaired Funct Balance, Impaired I ADL's, Impaired Self-Care Skills Discharge Recommendations Plan/Recommendations: Continue POC Treatment Plan/Plan of Care Patient would benefit from OT for education, treatment and training to promote independence in ADL's, mobility, safety and/or upper extremity function for ADL's. Plan of Care: ADL Retraining, Functional Mobility, Group Exercise/Act as Ind, UE Funct Exercise/Act Treatment Duration: Aug 06, 2021 Frequency: At least 5 of 7 days/Wk (IRF) Estimated Hrs Per Day: 1.5 hours per day Agreement: Yes Rehab Potential: Good Time/GCodes Start Time: 08:00 Stop Time: 09:30 Total Time Billed (hr/min): 90 Billed Treatment Time [place] (30) 1, ADL 3 (50), FA 2 (30), EX (10) YAHIR CABRERA OT Jul 23, 2021 09:38
--- NOTE | 2021-07-23 09:57 | Physical Therapy Daily Note ---
PT Daily Note-Current Subjective Patient in WC in therapy gym pre tx, already working with OT, agrees to PT, has 1/10 pain in pelvis. Will be co-treating with OT due to poor patient mobility, increasing pain with activity, coordinate UE and LE with activity, safety and reduce risk of falls, work on core strength and balance. Appearance Patient on toilet post tx, has nurse call to use when done. Mental Status Patient Orientation: Person, Place, Situation Transfers SCALE: Activities may be completed with or without assistive devices. 2-Trlxqcdwbg-votldbq completes the activity by him/herself with no assistance from a helper. 5-Set-up or Clean-up Assistance-helper sets up or cleans up; patient completes activity. [place] assists only prior to or following the activity. 4-Supervision or Touching Assistance-helper provides verbal cues and/or touching/steadying and/or contact guard assistance as patient completes activity. Assistance may be provided throughout the activity or intermittently. 3-Partial/Moderate Assistance-helper does LESS THAN HALF the effort. [place] lifts, holds or supports trunk or limbs, but provides less than half the effort. 2-Substantial/Maximal Assistance-helper does MORE THAN HALF the effort. [place] lifts or holds trunk or limbs and provides more than half the effort. 7-Omlvkkqxv-pghigi does ALL the effort. Patient does none of the effort to complete the activity. Or, the assistance of 2 or more helpers is required for the patient to complete the activity. If activity was not attempted, code reason: 7-Patient Refused. 9-Not Applicable-not attempted and the patient did not perform the activity before the current illness, exacerbation or injury. 10-Not Attempted due to Environmental Limitations-(lack of equipment, weather restraints, etc.). 88-Not Attempted due to Medical Conditions or Safety Concerns. Toilet Transfer (QC): 3 Weight Bearing Right Lower Extremity: Right Non Weight Bearing Left Lower Extremity: Left Non Weight Bearing also no bending, twisting, and 10# lifting limit Wheelchair Training Does the Pt Use a Wheelchair?: Yes Wheel 50 ft with 2 turns (QC): 6 Wheel 150 ft (QC): 6 Type of Wheelchair: Manual 300'x2 Exercises Seated Therapy Exercises: Ankle pumps, Hip flexion, Hip abd/add (with ball and RTB) Seated Reps: 20 LAQ alternating for 5 min, reaching activity to work on core strength and balance without trunk support and arm bike without trunk support (10min) Treatments PT worked on transfers, LE strengthening, trunk strengthening and balance, WC mobility, OT worked on UE positioning and safety during activity, reaching activity, UE strengthening Assessment Current Status: Fair Progress improving transfers PT Short Term Goals Short Term Goals Time Frame: Jul 29, 2021 Roll Left & Right: 6 Sit to lyin Lying to sitting on side of be: 5 Chair/kkp-ya-arpmk transfer: 5 PT Penitentiary Goals Penitentiary Goals PT Penitentiary Goals Time Frame: Aug 12, 2021 Roll Left & Right (QC): 6 Sit to Lying (QC): 6 Lying-Sitting on Side/Bed(QC): 6 Sit to Stand (QC): 88 Chair/Qqd-lg-Lrlyv Xfer(QC): 6 Toilet Transfer (QC): 6 Car Transfer (QC): 6 Does the Patient Walk: No and Walking Goal NOT indicated Walk 10 feet (QC): 88 Walk 50ft with 2 Turns (QC): 88 Walk 150 ft (QC): 88 Walking 10ft on Uneven Surface: 88 1 Step (curb) (QC): 88 4 Steps (QC): 88 12 Steps (QC): 88 Picking up an Object (QC): 88 Wheel 50 feet with 2 turns (QC: 6 Wheel 150 feet: 6 PT Plan Problem List Problem List: Activity Tolerance, Functional Strength, Safety, Balance, Gait, Transfer, Bed Mobility, ROM Treatment/Plan Treatment Plan: Continue Plan of Care Treatment Plan: Bed Mobility, Education, Functional Activity [place], Functional Strength, Group Therapy, Safety, Therapeutic Exercise, Transfers Treatment Duration: Aug 12, 2021 Frequency: At least 5 of 7 days/Wk (IRF) Estimated Hrs Per Day: 1.5 hours per day Patient and/or Family Agrees t: Yes Safety Risks/Education Patient Education: Transfer Techniques, Correct Positioning, W/C Management, Safety Issues Teaching Recipient: Patient Teaching Methods: Demonstration, Discussion Response to Teaching: Reinforcement Needed Time/GCodes Time In: 0900 Time Out: 1000 Total Billed Treatment Time: 60 Total Billed Treatment 1 visit EX 30' FA 30' co-treated from [id number] MARNIE KNIGHT PT Jul 23, 2021 09:57
--- NOTE | 2021-07-23 10:47 | CONSULTATION REPORT ---
DATE OF SERVICE: 07/23/2021 ATTENDING PHYSICIAN: Sandra Avery DO SUMMARY: After reviewing the patient's record, interviewing him and examining him, this is a 56-year-old white man who apparently had an accident thrown by horse, sustained urethral injury secondary to a pelvic fracture and Hoffman catheter put in and order from the urologist who did that is to keep it until he sees him back in his office at [place] two weeks after that. IMPRESSION: Urethral trauma secondary to horse injury. PLAN: Leave Hoffman in until he sees his urologist and decide with him. We will see him p.r.n. If any problem, he will need to go back to his urologist because I do not deal with these injuries. Job ID: [id number] DocumentID: [id number] Dictated Date: 07/23/2021 08:43:53 Shoe Repair Supervisor Date: 07/23/2021 10:46:29 Dictated By: ABRAN DONNELLY MD
--- NOTE | 2021-07-23 12:45 | Physical Therapy Daily Note ---
PT Daily Note-Current Subjective Patient in bed pre tx, agrees to PT, voices no complaints of pain at rest. Appearance Patient in bed post tx with nurse call, phone, tray, all needs met. Mental Status Patient Orientation: Person, Place, Situation Transfers SCALE: Activities may be completed with or without assistive devices. 1-Bxnzudixwg-bczwami completes the activity by him/herself with no assistance from a helper. 5-Set-up or Clean-up Assistance-helper sets up or cleans up; patient completes activity. [place] assists only prior to or following the activity. 4-Supervision or Touching Assistance-helper provides verbal cues and/or to uching/steadying and/or contact guard assistance as patient completes activity. Assistance may be provided throughout the activity or intermittently. 3-Partial/Moderate Assistance-helper does LESS THAN HALF the effort. [place] lifts, holds or supports trunk or limbs, but provides less than half the effort. 2-Substantial/Maximal Assistance-helper does MORE THAN HALF the effort. [place] lifts or holds trunk or limbs and provides more than half the effort. 7-Tiebcvkvw-fmcbpp does ALL the effort. Patient does none of the effort to complete the activity. Or, the assistance of 2 or more helpers is required for the patient to complete the activity. If activity was not attempted, code reason: 7-Patient Refused. 9-Not Applicable-not attempted and the patient did not perform the activity before the current illness, exacerbation or injury. 10-Not Attempted due to Environmental Limitations-(lack of equipment, weather restraints, etc.). 88-Not Attempted due to Medical Conditions or Safety Concerns. Weight Bearing Right Lower Extremity: Right Non Weight Bearing Left Lower Extremity: Left Non Weight Bearing also no bending, twisting, and 10# lifting limit Exercises Supine Ex: Ankle pumps, Quad Set, Glut sets, Heel Slides, Short Arc Quads, Straight leg raise, Hip abd/add Supine Reps: 20 (AAROM on the left side with hip abd/add, SLR, SAQ, and HS) Treatments LE strengthening Assessment Current Status: Fair Progress pain in left pelvis with hip movement PT Short Term Goals Short Term Goals Time Frame: Jul 29, 2021 Roll Left & Right: 6 Sit to lyin Lying to sitting on side of be: 5 Chair/bpk-yo-sbdbm transfer: 5 PT Lgsw Goals Lgsw Goals PT Nursing Home Goals Time Frame: Aug 12, 2021 Roll Left & Right (QC): 6 Sit to Lying (QC): 6 Lying-Sitting on Side/Bed(QC): 6 Sit to Stand (QC): 88 Chair/Ozx-ao-Dynug Xfer(QC): 6 Toilet Transfer (QC): 6 Car Transfer (QC): 6 Does the Patient Walk: No and Walking Goal NOT indicated Walk 10 feet (QC): 88 Walk 50ft with 2 Turns (QC): 88 Walk 150 ft (QC): 88 Walking 10ft on Uneven Surface: 88 1 Step (curb) (QC): 88 4 Steps (QC): 88 12 Steps (QC): 88 Picking up an Object (QC): 88 Wheel 50 feet with 2 turns (QC: 6 Wheel 150 feet: 6 PT Plan Problem List Problem List: Activity Tolerance, Functional Strength, Safety, Balance, Gait, Transfer, Bed Mobility, ROM Treatment/Plan Treatment Plan: Continue Plan of Care Treatment Plan: Bed Mobility, Education, Functional Activity [place], Functional Strength, Group Therapy, Safety, Therapeutic Exercise, Transfers Treatment Duration: Aug 12, 2021 Frequency: At least 5 of 7 days/Wk (IRF) Estimated Hrs Per Day: 1.5 hours per day Patient and/or Family Agrees t: Yes Safety Risks/Education Patient Education: Correct Positioning, Safety Issues Teaching Recipient: Patient Teaching Methods: Demonstration, Discussion Response to Teaching: Reinforcement Needed Time/GCodes Time In: 1140 Time Out: 1210 Total Billed Treatment Time: 30 Total Billed Treatment 1 visit EX 30' MARNIE KNIGHT PT Jul 23, 2021 12:45
[2021-07-23 20:00] VITALS: BP 104/70
--- NOTE | 2021-07-24 06:06 | PM&R Progress Note ---
Subjective HPI/CC On Admission Date Seen by Provider: Jul 24, 2021 Time Seen by Provider: 12:00 Subjective/Events-last exam 07/24/2021: Doing very well Using wheelchair Tailbone really hurts so we will change beds No hematuria Bowels are moving 07/23/2021: Patient doing really well Moving around pretty well with weightbearing restriction Cabrera catheter in place Pain is pretty well controlled Working with therapy Review of Systems Musculoskeletal: back pain Objective Exam Vital Signs Vital Signs Date Time Temp Pulse Resp B/P (MAP) Pulse Ox O2 Delivery O2 Flow Rate FiO2 07/24/21 20:20 92 Room Air 07/24/21 20:00 36.8 106 18 107/65 (79) Capillary Refill : General Appearance: No Apparent Distress, WD/WN HEENT: PERRL/EOMI, Normal ENT Inspection, Pharynx Normal Neck: Full Range of Motion, Normal Inspection, Non Tender, Supple, Carotid Bruit Respiratory: Chest Non Tender, Lungs Clear, Normal Breath Sounds, No Accessory Muscle Use, No Respiratory Distress Cardiovascular: Regular Rate, Rhythm, No Edema, No Gallop, No JVD, No Murmur, Normal Peripheral Pulses Gastrointestinal: Normal Bowel Sounds, No Organomegaly, No Pulsatile Mass, Non Tender, Soft Back: Normal Inspection, Decreased Range of Motion Extremity: Normal Capillary Refill, Normal Inspection, Non Tender, No Calf Tenderness, No Pedal Edema, Other (limited ROM lower extremities due to pain) Neurologic/Psychiatric: Alert, Oriented x3, Normal Mood/Affect, brand lead II-XII Norm as Tested, Abnormal Gait, Motor Weakness Skin: Normal Color, Warm/Dry Lymphatic: No Adenopathy Results/Procedures Lab Patient resulted labs reviewed. FIM Transfers Therapy Code Descriptions/Definitions Functional [place] Measure: 0=Not Assessed/NA 4=Minimal Assistance 1=Total Assistance 5=Supervision or Setup 2=Maximal Assistance 6=Modified [place] 3=Moderate Assistance 7=Complete IndependenceSCALE: Activities may be completed with or without assistive devices. 1-Fpohcijrxk-hdsailf completes the activity by him/herself with no assistance from a helper. 5-Set-up or Clean-up Assistance-helper sets up or cleans up; patient completes a ctivity. [place] assists only prior to or following the activity. 4-Supervision or Touching Assistance-helper provides verbal cues and/or touching/steadying and/or contact guard assistance as patient completes activity. Assistance may be provided throughout the activity or intermittently. 3-Partial/Moderate Assistance-helper does LESS THAN HALF the effort. [place] lifts, holds or supports trunk or limbs, but provides less than half the effort. 2-Substantial/Maximal Assistance-helper does MORE THAN HALF the effort. [place] lifts or holds trunk or limbs and provides more than half the effort. 1-Mjizgoelr-mpvfvk does ALL the effort. Patient does none of the effort to complete the activity. Or, the assistance of 2 or more helpers is required for the patient to complete the activity. If activity was not attempted, code reason: 7-Patient Refused. 9-Not Applicable-not attempted and the patient did not perform the activity before the current illness, exacerbation or injury. 10-Not Attempted due to Environmental Limitations-(lack of equipment, weather restraints, etc.). 88-Not Attempted due to Medical Conditions or Safety Concerns. Roll Left to Right (QC): 6 Sit to Lying (QC): 4 Sit to Stand (QC): 88 Chair/Ygb-cc-Acsao Xfer(QC): 4 Car Transfer (QC): 4 Gait Training Does the Patient Walk?: No and Walking Goal NOT indicated Walk 10 feet (QC): 88 Walk 50 ft with 2 Turns(QC): 88 Walk 150 ft (QC): 88 Walking 10ft/uneven surface-QC: 88 Wheelchair Training Does the Pt Use a Wheelchair?: Yes Distance: 600' Wheel 50 ft with 2 turns (QC): 6 Wheel 150 ft (QC): 6 Type of Wheelchair: Manual Stair Training 1 Step (curb) (QC): 88 4 Steps (QC): 88 12 Steps (QC): 88 Balance Picking up an Object (QC): 88 ADL-Treatment Eating (QC): 6 (IND with lunch) Oral Hygiene (QC): 6 (IND seated at sink.) Bathing Location: L Arm, R Arm, L Upper Leg, R Upper Leg, L Lower Leg (inclu ding foot), R Lower Leg (including foot), Chest, Abdomen, Buttocks, Perineal Area Shower/Bathe Self (QC): 2 (Sponge bath in bed, max A needed to clean buttocks, back and feet. ) Upper Body Dressing (QC): 5 (Setup) Lower Body Dressing (QC): 5 (Setup with threading catheter, pt able to use AE at bed level) On/Off Footwear (QC): 5 (set up.) Toileting Hygiene (QC): 7 Assessment/Plan Assessment and Plan Assess & Plan/Chief Complaint Assessment: Pelvic fracture from fall off horse Urethral injury maintained with cabrera cath for 4 weeks DM HTN Elevated BMI DVT PPx Plan: Rehab protocol Cabrera cath DM management Urology consult 07/23/2021: Rehab protocol Cabrera cath for 4 weeks due to urethral injury 07/24/2021: Maintain Cabrera cath Nonweightbearing status (1) Pelvic fracture (2) Diabetes (3) BMI 33.0-33.9,adult JORGE CRONIN DO Jul 24, 2021 06:06
[2021-07-24] MEDS: ENOXAPARIN 30 MG/0.3 ML (LOVENOX) SYR SQ SCH ×2 (06:41→18:00)
[2021-07-24 07:30] VITALS: BP 117/67
[2021-07-24] MEDS: polyethylene glycoL POWDER 17 GM (MIRALAX) PACK PO SCH ×2 (09:00→19:42)
[2021-07-24] MEDS: SENNA W/DOCUSATE (SENOKOT S) TABLET PO SCH ×2 (09:00→19:42)
[2021-07-24] MEDS: DOCUSATE SODIUM 100 MG (COLACE) CAP PO SCH ×2 (09:00→19:42)
[2021-07-24] MEDS: lisINopril 20 MG (PRINIVIL) TABLET PO SCH (09:42)
[2021-07-24] MEDS: metFORMIN 500 MG (GLUCOPHAGE) TAB PO SCH ×2 (09:42→17:59)
--- NOTE | 2021-07-24 11:06 | Physical Therapy Daily Note ---
PT Daily Note-Current Subjective Pt states he just woke up. "I did not get settled down until about 2am." Pain rated 3/10 through pelvis. Pt reports pain is limiting (L) LE movement but not having trouble with (R) LE. Pt uses aides as needed to assist (L) LE movement in bed. Pt states he is doing well with slide board transfers and is comfortabl e asking nurse later to get up to w/c. "I would rather stay here if I can for now." Pt allowed to stay in bed, instructed to perform LE ther ex 2x/day through weekend. Pt agreeable. Pain Numeric Pain Scale: 3 Location Body Site: Pelvic Mental Status Patient Orientation: Person, Place, Situation Attachments: Hoffman Catheter Transfers SCALE: Activities may be completed with or without assistive devices. 9-Ppuedxgqqf-zuxgqfe completes the activity by him/herself with no assistance from a helper. 5-Set-up or Clean-up Assistance-helper sets up or cleans up; patient completes activity. [place] assists only prior to or following the activity. 4-Supervision or Touching Assistance-helper provides verbal cues and/or touching/steadying and/or contact guard assistance as patient completes activity. Assistance may be provided throughout the activity or intermittently. 3-Partial/Moderate Assistance-helper does LESS THAN HALF the effort. [place] lifts, holds or supports trunk or limbs, but provides less than half the effort. 2-Substantial/Maximal Assistance-helper does MORE THAN HALF the effort. [place] lifts or holds trunk or limbs and provides more than half the effort. 8-Arrugulqr-mfhxut does ALL the effort. Patient does none of the effort to complete the activity. Or, the assistance of 2 or more helpers is required for the patient to complete the activity. If activity was not attempted, code reason: 7-Patient Refused. 9-Not Applicable-not attempted and the patient did not perform the activity before the current illness, exacerbation or injury. 10-Not Attempted due to Environmental Limitations-(lack of equipment, weather restraints, etc.). 88-Not Attempted due to Medical Conditions or Safety Concerns. Weight Bearing Right Lower Extremity: Right Non Weight Bearing Left Lower Extremity: Left Non Weight Bearing also no bending, twisting, and 10# lifting limit Exercises Supine Ex: Ankle pumps, Quad Set, Glut sets, Heel Slides, Short Arc Quads, Hip abd/add Supine Reps: 15 Assessment Current Status: Good Progress Pt jozef above very well. Pt does require LE aid for (L) LE for heel slide and hip abd, otherwise good mobility. Pt resting with call light and all needs met. PT Short Term Goals Short Term Goals Time Frame: Jul 29, 2021 Roll Left & Right: 6 Sit to lyin Lying to sitting on side of be: 5 Chair/sag-ww-xktgm transfer: 5 PT Tow Picker Goals Tow Picker Goals PT Detention Goals Time Frame: Aug 12, 2021 Roll Left & Right (QC): 6 Sit to Lying (QC): 6 Lying-Sitting on Side/Bed(QC): 6 Sit to Stand (QC): 88 Chair/Rjq-kh-Jyqsh Xfer(QC): 6 Toilet Transfer (QC): 6 Car Transfer (QC): 6 Does the Patient Walk: No and Walking Goal NOT indicated Walk 10 feet (QC): 88 Walk 50ft with 2 Turns (QC): 88 Walk 150 ft (QC): 88 Walking 10ft on Uneven Surface: 88 1 Step (curb) (QC): 88 4 Steps (QC): 88 12 Steps (QC): 88 Picking up an Object (QC): 88 Wheel 50 feet with 2 turns (QC: 6 Wheel 150 feet: 6 PT Plan Treatment/Plan Treatment Plan: Continue Plan of Care Treatment Plan: Bed Mobility, Education, Functional Activity [place], Functional Strength, Group Therapy, Safety, Therapeutic Exercise, Transfers Treatment Duration: Aug 12, 2021 Frequency: At least 5 of 7 days/Wk (IRF) Estimated Hrs Per Day: 1.5 hours per day Patient and/or Family Agrees t: Yes Time/GCodes Time In: 915 Time Out: 933 Total Billed Treatment Time: 18 Total Billed Treatment 1, ther ex 18' ZOHRA MÁRQUEZ CPTA Jul 24, 2021 11:06
[2021-07-24 20:00] VITALS: BP 107/65
[2021-07-24] MEDS: HYDROcodone/APAP 5 MG/325 MG (LORTAB) TAB PO PRN (23:40)
[2021-07-25] MEDS: ENOXAPARIN 30 MG/0.3 ML (LOVENOX) SYR SQ SCH ×2 (06:21→17:20)
--- NOTE | 2021-07-25 06:25 | PM&R Progress Note ---
Subjective HPI/CC On Admission Date Seen by Provider: Jul 25, 2021 Time Seen by Provider: 12:45 Subjective/Events-last exam 07/25/2021: Patient doing really well The bed change really helped his tailbone Check meds and labs No falls 07/24/2021: Doing very well Using wheelchair Tailbone really hurts so we will change beds No hematuria Bowels are moving 07/23/2021: Patient doing really well Moving around pretty well with weightbearing restriction Cabrera catheter in place Pain is pretty well controlled Working with therapy Review of Systems General: Fatigue, Malaise Musculoskeletal: leg pain Objective Exam Vital Signs Vital Signs Date Time Temp Pulse Resp B/P (MAP) Pulse Ox O2 Delivery O2 Flow Rate FiO2 07/25/21 20:09 Room Air 07/25/21 20:00 37.0 111 20 124/72 (89) 95 Capillary Refill : General Appearance: No Apparent Distress, WD/WN HEENT: PERRL/EOMI, Normal ENT Inspection, Pharynx Normal Neck: Full Range of Motion, Normal Inspection, Non Tender, Supple, Carotid Bruit Respiratory: Chest Non Tender, Lungs Clear, Normal Breath Sounds, No Accessory Muscle Use, No Respiratory Distress Cardiovascular: Regular Rate, Rhythm, No Edema, No Gallop, No JVD, No Murmur, Normal Peripheral Pulses Gastrointestinal: Normal Bowel Sounds, No Organomegaly, No Pulsatile Mass, Non Tender, Soft Back: Normal Inspection, Decreased Range of Motion Extremity: Normal Capillary Refill, Normal Inspection, Non Tender, No Calf Tenderness, No Pedal Edema, Other (limited ROM lower extremities due to pain) Neurologic/Psychiatric: Alert, Oriented x3, Normal Mood/Affect, journalists and other writers II-XII Norm as Tested, Abnormal Gait, Motor Weakness Skin: Normal Color, Warm/Dry Lymphatic: No Adenopathy Results/Procedures Lab Patient resulted labs reviewed. FIM Transfers Therapy Code Descriptions/Definitions Functional [place] Measure: 0=Not Assessed/NA 4=Minimal Assistance 1=Total Assistance 5=Supervision or Setup 2=Maximal Assistance 6=Modified [place] 3=Moderate Assistance 7=Complete IndependenceSCALE: Activities may be completed with or without assistive devices. 2-Uvhvnlsnjz-qoikcom completes the activity by him/herself with no assistance from a helper. 5-Set-up or Clean-up Assistance-helper sets up or cleans up; patient completes activity. [place] assists only prior to or following the activity. 4-Supervision or Touching Assistance-helper provides verbal cues and/or touching/steadying and/or contact guard assistance as patient completes activity. Assistance may be provided throughout the activity or intermittently. 3-Partial/Moderate Assistance-helper does LESS THAN HALF the effort. [place] lifts, holds or supports trunk or limbs, but provides less than half the effort. 2-Substantial/Maximal Assistance-helper does MORE THAN HALF the effort. [place] lifts or holds trunk or limbs and provides more than half the effort. 2-Iyzibokxc-xzhyun does ALL the effort. Patient does none of the effort to complete the activity. Or, the assistance of 2 or more helpers is required for the patient to complete the activity. If activity was not attempted, code reason: 7-Patient Refused. 9-Not Applicable-not attempted and the patient did not perform the activity before the current illness, exacerbation or injury. 10-Not Attempted due to Environmental Limitations-(lack of equipment, weather restraints, etc.). 88-Not Attempted due to Medical Conditions or Safety Concerns. Roll Left to Right (QC): 6 Sit to Lying (QC): 4 Sit to Stand (QC): 88 Chair/Itv-vs-Lndol Xfer(QC): 4 Car Transfer (QC): 4 Gait Training Does the Patient Walk?: No and Walking Goal NOT indicated Walk 10 feet (QC): 88 Walk 50 ft with 2 Turns(QC): 88 Walk 150 ft (QC): 88 Walking 10ft/uneven surface-QC: 88 Wheelchair Training Does the Pt Use a Wheelchair?: Yes Distance: 600' Wheel 50 ft with 2 turns (QC): 6 Wheel 150 ft (QC): 6 Type of Wheelchair: Manual Stair Training 1 Step (curb) (QC): 88 4 Steps (QC): 88 12 Steps (QC): 88 Balance Picking up an Object (QC): 88 ADL-Treatment Eating (QC): 6 (IND with lunch) Oral Hygiene (QC): 6 (IND seated at sink.) Bathing Location: L Arm, R Arm, L Upper Leg, R Upper Leg, L Lower Leg (including foot), R Lower Leg (including foot), Chest, Abdomen, Buttocks, Perineal Area Shower/Bathe Self (QC): 2 (Sponge bath in bed, max A needed to clean buttocks, back and feet. ) Upper Body Dressing (QC): 5 (Setup) Lower Body Dressing (QC): 5 (Setup with threading catheter, pt able to use AE at bed level) On/Off Footwear (QC): 5 (set up.) Toileting Hygiene (QC): 7 Assessment/Plan Assessment and Plan Assess & Plan/Chief Complaint Assessment: Pelvic fracture from fall off horse Urethral injury maintained with cabrera cath for 4 weeks DM HTN Elevated BMI DVT PPx Plan: Rehab protocol Cabrera cath DM management Urology consult 07/23/2021: Rehab protocol Cabrera cath for 4 weeks due to urethral injury 07/24/2021: Maintain Cabrera cath Nonweightbearing status 07/25/2021: Maintain Cabrera catheter Supportive care (1) Pelvic fracture (2) Diabetes (3) BMI 33.0-33.9,adult JORGE CRONIN DO Jul 25, 2021 06:25
[2021-07-25 07:20] VITALS: BP 111/57
[2021-07-25] MEDS: lisINopril 20 MG (PRINIVIL) TABLET PO SCH (08:24)
[2021-07-25] MEDS: metFORMIN 500 MG (GLUCOPHAGE) TAB PO SCH ×2 (08:24→17:20)
[2021-07-25] MEDS: DOCUSATE SODIUM 100 MG (COLACE) CAP PO SCH ×2 (09:30→19:46)
[2021-07-25] MEDS: SENNA W/DOCUSATE (SENOKOT S) TABLET PO SCH ×2 (09:32→19:46)
[2021-07-25] MEDS: polyethylene glycoL POWDER 17 GM (MIRALAX) PACK PO SCH ×2 (09:32→19:46)
[2021-07-25 20:00] VITALS: BP 124/72
[2021-07-25] MEDS: HYDROcodone/APAP 5 MG/325 MG (LORTAB) TAB PO PRN (20:34)
[2021-07-26] MEDS: ENOXAPARIN 30 MG/0.3 ML (LOVENOX) SYR SQ SCH ×2 (05:50→18:07)
[2021-07-26 06:22] LABS: BASOPHILS # (AUTO) 0.1 10^3/uL (0.0-0.1); BASOPHILS % (AUTO) 1 % (0-10); EOSINOPHILS # (AUTO) 0.1 10^3/uL (0.0-0.3); EOSINOPHILS % (AUTO) 1 % (0-10); HEMATOCRIT 34 % (40-54); HEMOGLOBIN 10.9 g/dL (13.3-17.7); LYMPHOCYTES # (AUTO) 2.2 10^3/uL (1.0-4.0); LYMPHOCYTES % (AUTO) 18 % (12-44); MEAN CORPUSCULAR HEMOGLOBIN 27 pg (25-34); MEAN CORPUSCULAR HGB CONC 32 g/dL (32-36); MEAN CORPUSCULAR VOLUME 85 fL (80-99); MEAN PLATELET VOLUME 8.2 fL (9.0-12.2); MONOCYTES % (AUTO) 9 % (0-12); NEUTROPHILS # (AUTO) 8.4 10^3/uL (1.8-7.8); NEUTROPHILS % (AUTO) 70 % (42-75); PLATELET COUNT 906 10^3/uL (130-400); WHITE BLOOD COUNT 11.9 10^3/uL (4.3-11.0)
[2021-07-26 06:40] LABS: ALBUMIN 3.9 GM/DL (3.2-4.5); POTASSIUM 4.5 MMOL/L (3.6-5.0)
[2021-07-26 06:42] LABS: CALCIUM 9.4 MG/DL (8.5-10.1)
[2021-07-26 06:45] LABS: BILIRUBIN,TOTAL 0.6 MG/DL (0.1-1.0)
[2021-07-26 06:47] LABS: CREATININE SERUM 0.8 MG/DL (0.60-1.30)
[2021-07-26 07:24] VITALS: BP 117/69
[2021-07-26] MEDS: metFORMIN 500 MG (GLUCOPHAGE) TAB PO SCH ×2 (07:53→18:07)
[2021-07-26] MEDS: lisINopril 20 MG (PRINIVIL) TABLET PO SCH (07:53)
[2021-07-26] MEDS: HYDROcodone/APAP 5 MG/325 MG (LORTAB) TAB PO PRN ×2 (07:53→20:29)
--- NOTE | 2021-07-26 09:06 | Physical Therapy Daily Note ---
PT Daily Note-Current Subjective Pt. states he is not in pain, feels more positive about his strength after Tx and wants to know when he can go home. Pt. has access to a w/c in his family and wants to have it brought in so he can see if it meets his needs Pain Location: No Pain Reported Mental Status Patient Orientation: Normal For Age Attachments: Hoffman Catheter Transfers SCALE: Activities may be completed with or without assistive devices. 9-Mmowgbxtuc-cfwwwyk completes the activity by him/herself with no assistance from a helper. 5-Set-up or Clean-up Assistance-helper sets up or cleans up; patient completes activity. [place] assists only prior to or following the activity. 4-Supervision or Touching Assistance-helper provides verbal cues and/or touching/steadying and/or contact guard assistance as patient completes activity. Assistance may be provided throughout the activity or intermittently. 3-Partial/Moderate Assistance-helper does LESS THAN HALF the effort. [place] lifts, holds or supports trunk or limbs, but provides less than half the effort. 2-Substantial/Maximal Assistance-helper does MORE THAN HALF the effort. [place] lifts or holds trunk or limbs and provides more than half the effort. 1-Sganudhlh-ppewvm does ALL the effort. Patient does none of the effort to complete the activity. Or, the assistance of 2 or more helpers is required for the patient to complete the activity. If activity was not attempted, code reason: 7-Patient Refused. 9-Not Applicable-not attempted and the patient did not perform the activity before the current illness, exacerbation or injury. 10-Not Attempted due to Environmental Limitations-(lack of equipment, weather restraints, etc.). 88-Not Attempted due to Medical Conditions or Safety Concerns. Roll Left & Right (QC): 5 Lying to Sitting/Side of Bed(Q: 5 Sit to Stand (QC): 88 Chair/Trx-ny-Twuok Xfer(QC): 5 pt. demonstrated indep in rolling to right as log roll and side to sit using bed rail. acquiring a bed cane for home was discussed, all other sld brd TRFs were SBA Weight Bearing Right Lower Extremity: Right Non Weight Bearing Left Lower Extremity: Left Non Weight Bearing also no bending, twisting, and 10# lifting limit Wheelchair Training Does the Pt Use a Wheelchair?: Yes Wheel 50 ft with 2 turns (QC): 6 Wheel 150 ft (QC): 6 Type of Wheelchair: Manual pt. demonstrated indep in braking, was instructed in removal and application of leg rest and arm rests and was indep in these x 3 trials Exercises Supine Ex: Ankle pumps, Quad Set, Rolling, Glut sets, Heel Slides, Short Arc Quads, Scooting, Straight leg raise (asssited), Hip abd/add Supine Reps: 20 HS stretch 3 x 20 sec with ankle pumps, HC stretch 3 x 20 sec bilat NuStep Minutes: 8 NuStep Workload: 1 Treatments sup to side to sit from flat bed , sld brd bed to w/c, application of arm rests and leg rests indep after instruction, nustep , w/c mob, supine LE therex and HS and HC stretches. Pt. to find out bed height at home as well as have w/c brought in from family to trial for DC use. Assessment Current Status: Good Progress meeting goals, making progress in all phases of Rx PT Short Term Goals Short Term Goals Time Frame: Jul 29, 2021 Roll Left & Right: 6 Sit to lyin Lying to sitting on side of be: 5 Chair/xsr-yv-kclvd transfer: 5 PT [facility] Goals [facility] Goals PT [facility] Goals Time Frame: Aug 12, 2021 Roll Left & Right (QC): 6 Sit to Lying (QC): 6 Lying-Sitting on Side/Bed(QC): 6 Sit to Stand (QC): 88 Chair/Org-cs-Rlesg Xfer(QC): 6 Toilet Transfer (QC): 6 Car Transfer (QC): 6 Does the Patient Walk: No and Walking Goal NOT indicated Walk 10 feet (QC): 88 Walk 50ft with 2 Turns (QC): 88 Walk 150 ft (QC): 88 Walking 10ft on Uneven Surface: 88 1 Step (curb) (QC): 88 4 Steps (QC): 88 12 Steps (QC): 88 Picking up an Object (QC): 88 Wheel 50 feet with 2 turns (QC: 6 Wheel 150 feet: 6 PT Plan Treatment/Plan Treatment Plan: Continue Plan of Care Treatment Plan: Bed Mobility, Education, Functional Activity [place], Functional Strength, Group Therapy, Safety, Therapeutic Exercise, Transfers Treatment Duration: Aug 12, 2021 Frequency: At least 5 of 7 days/Wk (IRF) Estimated Hrs Per Day: 1.5 hours per day Patient and/or Family Agrees t: Yes Safety Risks/Education Patient Education: Transfer Techniques, Reviewed Precautions, Correct Positioning, W/C Management, Safety Issues Teaching Recipient: Patient Teaching Methods: Demonstration, Discussion Response to Teaching: Verbalize Understanding, Return Demonstration, Reinforcement Needed Time/GCodes Time In: 800 Time Out: 900 Total Billed Treatment Time: 60 Total Billed Treatment 1,EX30m,FA30m RHIANNON GRANDE ASSISTANT FACILITY MANAGER Jul 26, 2021 09:06
[2021-07-26] MEDS: polyethylene glycoL POWDER 17 GM (MIRALAX) PACK PO SCH ×2 (09:46→20:03)
[2021-07-26] MEDS: DOCUSATE SODIUM 100 MG (COLACE) CAP PO SCH ×2 (09:46→20:29)
[2021-07-26] MEDS: SENNA W/DOCUSATE (SENOKOT S) TABLET PO SCH ×2 (09:46→20:29)
--- NOTE | 2021-07-26 10:17 | PM&R Progress Note ---
Subjective HPI/CC On Admission Date Seen by Provider: Jul 26, 2021 Time Seen by Provider: 10:00 Subjective/Events-last exam 07/26/21: Patient doing well Pain meds need to be taken before therapy Bowels last moved on Monday Patient refuses all laxatives Noted platelet count of 906 07/25/2021: Patient doing really well The bed change really helped his tailbone Check meds and labs No falls 07/24/2021: Doing very well Using wheelchair Tailbone really hurts so we will change beds No hematuria Bowels are moving 07/23/2021: Patient doing really well Moving around pretty well with weightbearing restriction Cabrera catheter in place Pain is pretty well controlled Working with therapy Review of Systems General: Fatigue, Malaise Musculoskeletal: back pain, leg pain Objective Exam Vital Signs Vital Signs Date Time Temp Pulse Resp B/P (MAP) Pulse Ox O2 Delivery O2 Flow Rate FiO2 07/26/21 20:34 Room Air 07/26/21 20:00 36.8 101 16 95/62 (73) 91 Capillary Refill : General Appearance: No Apparent Distress, WD/WN HEENT: PERRL/EOMI, Normal ENT Inspection, Pharynx Normal Neck: Full Range of Motion, Normal Inspection, Non Tender, Supple, Carotid Bruit Respiratory: Chest Non Tender, Lungs Clear, Normal Breath Sounds, No Accessory Muscle Use, No Respiratory Distress Cardiovascular: Regular Rate, Rhythm, No Edema, No Gallop, No JVD, No Murmur, Normal Peripheral Pulses Gastrointestinal: Normal Bowel Sounds, No Organomegaly, No Pulsatile Mass, Non Tender, Soft Back: Normal Inspection, Decreased Range of Motion Extremity: Normal Capillary Refill, Normal Inspection, Non Tender, No Calf Tenderness, No Pedal Edema, Other (limited ROM lower extremities due to pain) Neurologic/Psychiatric: Alert, Oriented x3, Normal Mood/Affect, children teacher II-XII Norm as Tested, Abnormal Gait, Motor Weakness Skin: Normal Color, Warm/Dry Lymphatic: No Adenopathy Results/Procedures Lab Laboratory Tests 07/26/21 06:00 Patient resulted labs reviewed. FIM Transfers Therapy Code Descriptions/Definitions Functional [place] Measure: 0=Not Assessed/NA 4=Minimal Assistance 1=Total Assistance 5=Supervision or Setup 2=Maximal Assistance 6=Modified [place] 3=Moderate Assistance 7=Complete IndependenceSCALE: Activities may be completed with or without assistive devices. 9-Ovjchhvywj-cjyyoqz completes the activity by him/herself with no assistance from a helper. 5-Set-up or Clean-up Assistance-helper sets up or cleans up; patient completes activity. [place] assists only prior to or following the activity. 4-Supervision or Touching Assistance-helper provides verbal cues and/or touching/steadying and/or contact guard assistance as patient completes activity. Assistance may be provided throughout the activity or intermittently. 3-Partial/Moderate Assistance-helper does LESS THAN HALF the effort. [place] lifts, holds or supports trunk or limbs, but provides less than half the effort. 2-Substantial/Maximal Assistance-helper does MORE THAN HALF the effort. [place] lifts or holds trunk or limbs and provides more than half the effort. 5-Qxcsneeul-hxuben does ALL the effort. Patient does none of the effort to complete the activity. Or, the assistance of 2 or more helpers is required for the patient to complete the activity. If activity was not attempted, code reason: 7-Patient Refused. 9-Not Applicable-not attempted and the patient did not perform the activity before the current illness, exacerbation or injury. 10-Not Attempted due to Environmental Limitations-(lack of equipment, weather restraints, etc.). 88-Not Attempted due to Medical Conditions or Safety Concerns. Roll Left to Right (QC): 5 Sit to Lying (QC): 4 Sit to Stand (QC): 88 Chair/Ozr-om-Uedjq Xfer(QC): 5 Car Transfer (QC): 4 Gait Training Does the Patient Walk?: No and Walking Goal NOT indicated Walk 10 feet (QC): 88 Walk 50 ft with 2 Turns(QC): 88 Walk 150 ft (QC): 88 Walking 10ft/uneven surface-QC: 88 Wheelchair Training Does the Pt Use a Wheelchair?: Yes Distance: 600' Wheel 50 ft with 2 turns (QC): 6 Wheel 150 ft (QC): 6 Type of Wheelchair: Manual Stair Training 1 Step (curb) (QC): 88 4 Steps (QC): 88 12 Steps (QC): 88 Balance Picking up an Object (QC): 88 ADL-Treatment Eating (QC): 6 (IND with lunch) Oral Hygiene (QC): 6 (IND seated at sink.) Bathing Location: L Arm, R Arm, L Upper Leg, R Upper Leg, L Lower Leg (including foot), R Lower Leg (including foot), Chest, Abdomen, Buttocks, Perineal Area Shower/Bathe Self (QC): 2 (Sponge bath in bed, max A needed to clean buttocks, back and feet. ) Upper Body Dressing (QC): 5 (Setup) Lower Body Dressing (QC): 5 (Setup with threading catheter, pt able to use AE at bed level) On/Off Footwear (QC): 5 (set up.) Toileting Hygiene (QC): 7 Assessment/Plan Assessment and Plan Assess & Plan/Chief Complaint Assessment: Pelvic fracture from fall off horse Urethral injury maintained with cabrear cath for 4 weeks DM HTN Elevated BMI DVT PPx Thrombocytosis Hematuria Plan: Rehab protocol Cabrera cath DM management Urology consult 07/23/2021: Rehab protocol Cabrera cath for 4 weeks due to urethral injury 07/24/2021: Maintain Cabrera cath Nonweightbearing status 07/25/2021: Maintain Cabrera catheter Supportive care 07/26/2021: Supportive care Cabrera catheter Evaluate thrombocytosis versus (1) Pelvic fracture (2) Diabetes (3) BMI 33.0-33.9,adult JORGE CRONIN DO Jul 26, 2021 10:17
--- NOTE | 2021-07-26 10:37 | Occupational Ther Daily Note ---
OT Current Status-Daily Note Subjective Pt in therapy gym, finishing up with PT. Pt agreeable to OT tx. Mental Status/Objective Patient Orientation: Person, Place, Time, Situation Attachments: Hoffman Catheter ADL-Treatment Therapy Code Descriptions/Definitions Functional [place] Measure: 0=Not Assessed/NA 4=Minimal Assistance 1=Total Assistance 5=Supervision or Setup 2=Maximal Assistance 6=Modified [place] 3=Moderate Assistance 7=Complete IndependenceSCALE: Activities may be completed with or without assistive devices. 8-Qijhfjyhff-hkpunnd completes the activity by him/herself with no assistance from a helper. 5-Set-up or Clean-up Assistance-helper sets up or cleans up; patient completes activity. [place] assists only prior to or following the activity. 4-Supervision or Touching Assistance-helper provides verbal cues and/or touching/steadying and/or contact guard assistance as patient completes activity. Assistance may be provided throughout the activity or intermittently. 3-Partial/Moderate Assistance-helper does LESS THAN HALF the effort. [place] lifts, holds or supports trunk or limbs, but provides less than half the effort. 2-Substantial/Maximal Assistance-helper does MORE THAN HALF the effort. [place] lifts or holds trunk or limbs and provides more than half the effort. 5-Wunquwxir-fqpsgn does ALL the effort. Patient does none of the effort to complete the activity. Or, the assistance of 2 or more helpers is required for the patient to complete the activity. If activity was not attempted, code reason: 7-Patient Refused. 9-Not Applicable-not attempted and the patient did not perform the activity before the current illness, exacerbation or injury. 10-Not Attempted due to Environmental Limitations-(lack of equipment, weather restraints, etc.). 88-Not Attempted due to Medical Conditions or Safety Concerns. Bathing Location: L Arm, R Arm, L Upper Leg, R Upper Leg, L Lower Leg (including foot), R Lower Leg (including foot), Chest, Abdomen, Buttocks, Perineal Area Shower/Bathe Self (QC): 5 (Setup/clean up) Upper Body Dressing (QC): 5 (setup/clean up) Lower Body Dressing (QC): 5 (setup/clean up) On/Off Footwear: 5 (setup) Toileting Hygiene (QC): 6 Toilet Transfer (QC): 4 (sba) Other Treatment Pt in therapy gym, finishing up with PT. Pt transitioned to w/c from nustep machine using SB. Pt propelled w/c to bathroom in his room, transitioned to toilet from w/c using SB, SBA. Pt completed toileting, doffed pants and socks, AE, SB to w/c, then transitioned to SC with SB. Pt completed showering, transitioned back to w/c to don shirt, pants and socks, AE. Pt propelled w/c to supply room for education over shower benches that he can use inside a bathtub. Pt propelled w/c to therapy gym, placed/removed 100 pegs into pegboard to work on strengthening and activity tolerance, BUE, 1 lb weights on both wrist. Pt removed beads from moderate resistance theraputty to work on hand strengthening and fine motor skills. Pt propelled w/c back to room, transitioned to bed from w/c using SB. Pt in bed, call light in reach and all needs met. Education OT Patient Education: Correct positioning, Energy conservation, Modified ADL techniques, Progress toward Goal/Update tx plan, Purpose of tx/functional activities, Rehab process, Use of adapted equipment Teaching Recipient: Patient Teaching Methods: Demonstration, Discussion Response to Teaching: Verbalize Understanding, Return Demonstration OT Short Term Goals Short Term Goals Time Frame: Jul 28, 2021 Toileting hygiene: 4 Shower/bathe self: 4 Lower body dressin OT Usp Goals Usp Goals Time Frame: Aug 06, 2021 Eating (QC): 6 Oral Hygiene (QC): 6 Toileting Hygiene (QC): 6 Shower/Bathe Self (QC): 6 Upper Body Dressing (QC): 6 Lower Body Dressing (QC): 6 On/Off Footwear (QC): 6 Additional Goals: 1-Demonstrate ADL Tasks, 2-Verbalize Understanding, 3- ImproveStrength/[place] 1=Demonstrate adherence to instructed precautions during ADL tasks. 2=Patient will verbalize/demonstrate understanding of assistive devices/modifications for ADL. 3=Patient will improve strength/tolerance for activity to enable patient to perform ADL's. OT Education/Plan Problem List/Assessment Assessment: Decreased Activ Tolerance, Decreased UE Strength, Impaired Funct Balance, Impaired I ADL's, Impaired Self-Care Skills Discharge Recommendations Plan/Recommendations: Continue POC Treatment Plan/Plan of Care Patient would benefit from OT for education, treatment and training to promote independence in ADL's, mobility, safety and/or upper extremity function for ADL's. Plan of Care: ADL Retraining, Functional Mobility, Group Exercise/Act as Ind, UE Funct Exercise/Act Treatment Duration: Aug 06, 2021 Frequency: At least 5 of 7 days/Wk (IRF) Estimated Hrs Per Day: 1.5 hours per day Agreement: Yes Rehab Potential: Good Time/GCodes Start Time: 09:00 Stop Time: 10:30 Total Time Billed (hr/min): 90 Billed Treatment Time 1, ADL 4 (60), FA 2 (30) YAHIR CABRERA OT Jul 26, 2021 10:36
[2021-07-26] MEDS: ACETAMINOPHEN 325 MG TABLET PO PRN (10:44)
[2021-07-26 10:56] LABS: BASOPHILS # (AUTO) 0.1 10^3/uL (0.0-0.1); BASOPHILS % (AUTO) 1 % (0-10); EOSINOPHILS # (AUTO) 0.1 10^3/uL (0.0-0.3); EOSINOPHILS % (AUTO) 1 % (0-10); HEMATOCRIT 34 % (40-54); HEMOGLOBIN 10.9 g/dL (13.3-17.7); LYMPHOCYTES # (AUTO) 2.2 10^3/uL (1.0-4.0); LYMPHOCYTES % (AUTO) 18 % (12-44); MEAN CORPUSCULAR HEMOGLOBIN 27 pg (25-34); MEAN CORPUSCULAR HGB CONC 32 g/dL (32-36); MEAN CORPUSCULAR VOLUME 85 fL (80-99); MEAN PLATELET VOLUME 8.2 fL (9.0-12.2); MONOCYTES % (AUTO) 9 % (0-12); NEUTROPHILS # (AUTO) 8.4 10^3/uL (1.8-7.8); NEUTROPHILS % (AUTO) 70 % (42-75); PLATELET COUNT 906 10^3/uL (130-400); WHITE BLOOD COUNT 11.9 10^3/uL (4.3-11.0)
[2021-07-26 11:06] LABS: ABSOLUTE RETIC # 75 10e9/uL (24-90); RETICULOCYTE % 1.87 % (0.50-2.40)
[2021-07-26 11:43] LABS: BAND NEUTROPHILS 1 %; BASOPHILS % (MANUAL) 0 %; EOSINOPHILS % (MANUAL) 0 %; LYMPHOCYTES % (MANUAL) 17 %; MONOCYTES % (MANUAL) 7 %; NEUTROPHILS % (MANUAL) 75 %; RBC MORPH NORMAL
--- NOTE | 2021-07-26 14:21 | Physical Therapy Daily Note ---
PT Daily Note-Current Subjective Pt. in bed and agrees to Tx. no c/o pain. Pain Location: No Pain Reported Mental Status Patient Orientation: Normal For Age Attachments: Hoffman Catheter Transfers SCALE: Activities may be completed with or without assistive devices. 3-Rpzifhlwob-ntkytak completes the activity by him/herself with no assistance from a helper. 5-Set-up or Clean-up Assistance-helper sets up or cleans up; patient completes activity. [place] assists only prior to or following the activity. 4-Supervision or Touching Assistance-helper provides verbal cues and/or touching/steadying and/or contact guard assistance as patient completes activity. Assistance may be provided throughout the activity or intermittently. 3-Partial/Moderate Assistance-helper does LESS THAN HALF the effort. [place] lifts, holds or supports trunk or limbs, but provides less than half the effort. 2-Substantial/Maximal Assistance-helper does MORE THAN HALF the effort. [place] lifts or holds trunk or limbs and provides more than half the effort. 5-Yrzeydnli-vrhlfg does ALL the effort. Patient does none of the effort to complete the activity. Or, the assistance of 2 or more helpers is required for the patient to complete the activity. If activity was not attempted, code reason: 7-Patient Refused. 9-Not Applicable-not attempted and the patient did not perform the activity before the current illness, exacerbation or injury. 10-Not Attempted due to Environmental Limitations-(lack of equipment, weather restraints, etc.). 88-Not Attempted due to Medical Conditions or Safety Concerns. Roll Left & Right (QC): 6 Sit to Lying (QC): 5 Lying to Sitting/Side of Bed(Q: 5 rolling on flat bee and log roll to side to sit and back all SBA Weight Bearing Right Lower Extremity: Right Non Weight Bearing Left Lower Extremity: Left Non Weight Bearing also no bending, twisting, and 10# lifting limit Gait Training Does the Patient Walk?: No and Walking Goal NOT indicated Exercises Supine Ex: Ankle pumps, Quad Set, Rolling, Glut sets, Short Arc Quads, Scooting (up in bed indep using only UEs), Hip abd/add Supine Reps: 15 Assessment Current Status: Good Progress marked progress in bed mob PT Short Term Goals Short Term Goals Time Frame: Jul 29, 2021 Roll Left & Right: 6 Sit to lyin Lying to sitting on side of be: 5 Chair/dvh-vl-yozhb transfer: 5 PT Correction Goals Hand Straightener Goals PT Correction Goals Time Frame: Aug 12, 2021 Roll Left & Right (QC): 6 Sit to Lying (QC): 6 Lying-Sitting on Side/Bed(QC): 6 Sit to Stand (QC): 88 Chair/Pwu-xw-Sqajc Xfer(QC): 6 Toilet Transfer (QC): 6 Car Transfer (QC): 6 Does the Patient Walk: No and Walking Goal NOT indicated Walk 10 feet (QC): 88 Walk 50ft with 2 Turns (QC): 88 Walk 150 ft (QC): 88 Walking 10ft on Uneven Surface: 88 1 Step (curb) (QC): 88 4 Steps (QC): 88 12 Steps (QC): 88 Picking up an Object (QC): 88 Wheel 50 feet with 2 turns (QC: 6 Wheel 150 feet: 6 PT Plan Treatment/Plan Treatment Plan: Continue Plan of Care Treatment Plan: Bed Mobility, Education, Functional Activity [place], Functional Strength, Group Therapy, Safety, Therapeutic Exercise, Transfers Treatment Duration: Aug 12, 2021 Frequency: At least 5 of 7 days/Wk (IRF) Estimated Hrs Per Day: 1.5 hours per day Patient and/or Family Agrees t: Yes Safety Risks/Education Patient Education: Transfer Techniques, Correct Positioning Time/GCodes Time In: 1315 Time Out: 1345 Total Billed Treatment Time: 30 Total Billed Treatment 1,FA15m,EX15m RHIANNON GRANDE MEDICAL RECORDS SPECIALIST Jul 26, 2021 14:21
[2021-07-26] MEDS ORDERED: MULT-1136 PO (15:04)
[2021-07-26] MEDS ORDERED: CHOL10007 PO (15:04)
[2021-07-26] MEDS ORDERED: ZINC50TA58 PO (15:04)
[2021-07-26 20:00] VITALS: BP 95/62
[2021-07-27] MEDS: HYDROcodone/APAP 5 MG/325 MG (LORTAB) TAB PO PRN ×4 (01:38→18:29)
[2021-07-27] MEDS: ENOXAPARIN 30 MG/0.3 ML (LOVENOX) SYR SQ SCH ×2 (05:43→18:25)
[2021-07-27 07:43] VITALS: BP 107/65
[2021-07-27] MEDS: SENNA W/DOCUSATE (SENOKOT S) TABLET PO SCH ×2 (08:11→21:31)
[2021-07-27] MEDS: metFORMIN 500 MG (GLUCOPHAGE) TAB PO SCH ×2 (08:11→18:29)
[2021-07-27] MEDS: DOCUSATE SODIUM 100 MG (COLACE) CAP PO SCH ×2 (08:11→21:23)
[2021-07-27] MEDS: lisINopril 20 MG (PRINIVIL) TABLET PO SCH (08:12)
[2021-07-27] MEDS: polyethylene glycoL POWDER 17 GM (MIRALAX) PACK PO SCH ×2 (08:13→21:31)
--- NOTE | 2021-07-27 08:43 | PM&R Progress Note ---
Subjective HPI/CC On Admission Date Seen by Provider: Jul 27, 2021 Time Seen by Provider: 09:00 Subjective/Events-last exam 07/27/21: Pt is sleeping soundly at this current time Bowels moved today Incision appears to be a little bit irritated but will monitor Pain meds taken occasionally 07/26/21: Patient doing well Pain meds need to be taken before therapy Bowels last moved on Monday Patient refuses all laxatives Noted platelet count of 906 07/25/2021: Patient doing really well The bed change really helped his tailbone Check meds and labs No falls 07/24/2021: Doing very well Using wheelchair Tailbone really hurts so we will change beds No hematuria Bowels are moving 07/23/2021: Patient doing really well Moving around pretty well with weightbearing restriction Cabrera catheter in place Pain is pretty well controlled Working with therapy Review of Systems General: Fatigue, Malaise Objective Exam Vital Signs Vital Signs Date Time Temp Pulse Resp B/P (MAP) Pulse Ox O2 Delivery O2 Flow Rate FiO2 07/27/21 21:00 Room Air 07/27/21 19:37 36.4 92 16 100/64 (76) 94 Capillary Refill : General Appearance: No Apparent Distress, WD/WN HEENT: PERRL/EOMI, Normal ENT Inspection, Pharynx Normal Neck: Full Range of Motion, Normal Inspection, Non Tender, Supple, Carotid Bruit Respiratory: Chest Non Tender, Lungs Clear, Normal Breath Sounds, No Accessory Muscle Use, No Respiratory Distress Cardiovascular: Regular Rate, Rhythm, No Edema, No Gallop, No JVD, No Murmur, Normal Peripheral Pulses Gastrointestinal: Normal Bowel Sounds, No Organomegaly, No Pulsatile Mass, Non Tender, Soft Back: Normal Inspection, Decreased Range of Motion Extremity: Normal Capillary Refill, Normal Inspection, Non Tender, No Calf Tenderness, No Pedal Edema, Other (limited ROM lower extremities due to pain) Neurologic/Psychiatric: Alert, Oriented x3, Normal Mood/Affect, hydrotel operator II-XII Norm as Tested, Abnormal Gait, Motor Weakness Skin: Normal Color, Warm/Dry Lymphatic: No Adenopathy Results/Procedures Lab Patient resulted labs reviewed. FIM Transfers Therapy Code Descriptions/Definitions Functional [place] Measure: 0=Not Assessed/NA 4=Minimal Assistance 1=Total Assistance 5=Supervision or Setup 2=Maximal Assistance 6=Modified [place] 3=Moderate Assistance 7=Complete IndependenceSCALE: Activities may be completed with or without assistive devices. 3-Cpvoqthwtr-tutgsqn completes the activity by him/herself with no assistance from a helper. 5-Set-up or Clean-up Assistance-helper sets up or cleans up; patient completes activity. [place] assists only prior to or following the activity. 4-Supervision or Touching Assistance-helper provides verbal cues and/or touching/steadying and/or contact guard assistance as patient completes activity. Assistance may be provided throughout the activity or intermittently. 3-Partial/Moderate Assistance-helper does LESS THAN HALF the effort. [place] lifts, holds or supports trunk or limbs, but provides less than half the effort. 2-Substantial/Maximal Assistance-helper does MORE THAN HALF the effort. [place] lifts or holds trunk or limbs and provides more than half the effort. 5-Sulkgqlut-hqacqi does ALL the effort. Patient does none of the effort to complete the activity. Or, the assistance of 2 or more helpers is required for the patient to complete the activity. If activity was not attempted, code reason: 7-Patient Refused. 9-Not Applicable-not attempted and the patient did not perform the activity before the current illness, exacerbation or injury. 10-Not Attempted due to Environmental Limitations-(lack of equipment, weather restraints, etc.). 88-Not Attempted due to Medical Conditions or Safety Concerns. Roll Left to Right (QC): 6 Sit to Lying (QC): 5 Sit to Stand (QC): 88 Chair/Odz-ge-Lllwf Xfer(QC): 5 Car Transfer (QC): 4 Gait Training Does the Patient Walk?: No and Walking Goal NOT indicated Walk 10 feet (QC): 88 Walk 50 ft with 2 Turns(QC): 88 Walk 150 ft (QC): 88 Walking 10ft/uneven surface-QC: 88 Wheelchair Training Does the Pt Use a Wheelchair?: Yes Distance: 600' Wheel 50 ft with 2 turns (QC): 6 Wheel 150 ft (QC): 6 Type of Wheelchair: Manual Stair Training 1 Step (curb) (QC): 88 4 Steps (QC): 88 12 Steps (QC): 88 Balance Picking up an Object (QC): 88 ADL-Treatment Eating (QC): 6 (IND with lunch) Oral Hygiene (QC): 6 (IND seated at sink.) Bathing Location: L Arm, R Arm, L Upper Leg, R Upper Leg, L Lower Leg (including foot), R Lower Leg (including foot), Chest, Abdomen, Buttocks, Perineal Area Shower/Bathe Self (QC): 5 (Setup/clean up) Upper Body Dressing (QC): 5 (setup/clean up) Lower Body Dressing (QC): 5 (setup/clean up) On/Off Footwear (QC): 5 (setup) Toileting Hygiene (QC): 6 Toilet Transfer (QC): 4 (sba) Assessment/Plan Assessment and Plan Assess & Plan/Chief Complaint Assessment: Pelvic fracture from fall off horse Urethral injury maintained with cabrera cath for 4 weeks DM HTN Elevated BMI DVT PPx Thrombocytosis Hematuria Plan: Rehab protocol Cabrera cath DM management Urology consult 07/23/2021: Rehab protocol Cabrera cath for 4 weeks due to urethral injury 07/24/2021: Maintain Cabrera cath Nonweightbearing status 07/25/2021: Maintain Cabrera catheter Supportive care 07/26/2021: Supportive care Cabrera catheter Evaluate thrombocytosis versus 07/27/21: Monitor closely Pain control (1) Pelvic fracture (2) Diabetes (3) BMI 33.0-33.9,adult JORGE CRONIN DO Jul 27, 2021 08:43
--- NOTE | 2021-07-27 10:04 | Occupational Ther Daily Note ---
OT Current Status-Daily Note Subjective Pt supine in bed. Pt agreeable to OT tx. Mental Status/Objective Patient Orientation: Person, Place, Time, Situation Attachments: Hoffman Catheter ADL-Treatment Therapy Code Descriptions/Definitions Functional [place] Measure: 0=Not Assessed/NA 4=Minimal Assistance 1=Total Assistance 5=Supervision or Setup 2=Maximal Assistance 6=Modified [place] 3=Moderate Assistance 7=Complete IndependenceSCALE: Activities may be completed with or without assistive devices. 2-Vyfhnocqlu-uckvgds completes the activity by him/herself with no assistance from a helper. 5-Set-up or Clean-up Assistance-helper sets up or cleans up; patient completes activity. [place] assists only prior to or following the activity. 4-Supervision or Touching Assistance-helper provides verbal cues and/or touching/steadying and/or contact guard assistance as patient completes activity. Assistance may be provided throughout the activity or intermittently. 3-Partial/Moderate Assistance-helper does LESS THAN HALF the effort. [place] lifts, holds or supports trunk or limbs, but provides less than half the effort. 2-Substantial/Maximal Assistance-helper does MORE THAN HALF the effort. [place] lifts or holds trunk or limbs and provides more than half the effort. 3-Jkqyuqscn-eehaox does ALL the effort. Patient does none of the effort to complete the activity. Or, the assistance of 2 or more helpers is required for the patient to complete the activity. If activity was not attempted, code reason: 7-Patient Refused. 9-Not Applicable-not attempted and the patient did not perform the activity before the current illness, exacerbation or injury. 10-Not Attempted due to Environmental Limitations-(lack of equipment, weather restraints, etc.). 88-Not Attempted due to Medical Conditions or Safety Concerns. Oral Hygiene (QC): 6 (independent ) Toileting Hygiene (QC): 6 (independent) Toilet Transfer (QC): 4 (SBA ) Other Treatment Pt supine in bed. Pt transitioned EOB independently, then used SB to transfer to w/c, SBA. Pt propelled w/c to bathroom, used SB to transfer to toilet, completed toileting, transferred back to w/c using SB, then propelled w/c to sink to complete hand hygiene, oral hygiene and shaved. Pt propelled w/c to therapy gym. Pt completed arm bike to work on activity tolerance and arm strengthening, 30 ariza, 15 mins, 2 rest breaks needed. Pt complete nut/bolt block x2 to work on fine motor skills and activity tolerance, 1 lb weights on both wrist, 1 rest break. Pt removed beads from moderate theraputty to work on hand strengthening and fine motor skills. Pt propelled w/c back to room, transitioned from w/c to bed using SB, SBA. Pt transferred supine independently. Post tx, pt supine in bed, call light in reach and all needs met. Education OT Patient Education: Correct positioning, Energy conservation, Exercise program, Modified ADL techniques, Progress toward Goal/Update tx plan, Purpose of tx/functional activities, Reviewed precautions, Rehab process Teaching Recipient: Patient Teaching Methods: Discussion Response to Teaching: Verbalize Understanding OT Short Term Goals Short Term Goals Time Frame: Jul 28, 2021 Toileting hygiene: 4 Shower/bathe self: 4 Lower body dressin OT Nursing Home Goals Hide Cleaner Goals Time Frame: Aug 06, 2021 Eating (QC): 6 Oral Hygiene (QC): 6 Toileting Hygiene (QC): 6 Shower/Bathe Self (QC): 6 Upper Body Dressing (QC): 6 Lower Body Dressing (QC): 6 On/Off Footwear (QC): 6 Additional Goals: 1-Demonstrate ADL Tasks, 2-Verbalize Understanding, 3- ImproveStrength/[place] 1=Demonstrate adherence to instructed precautions during ADL tasks. 2=Patient will verbalize/demonstrate understanding of assistive devices/modifications for ADL. 3=Patient will improve strength/tolerance for activity to enable patient to perform ADL's. OT Education/Plan Problem List/Assessment Assessment: Decreased Activ Tolerance, Decreased UE Strength, Impaired Funct Balance, Impaired I ADL's, Impaired Self-Care Skills Discharge Recommendations Plan/Recommendations: Continue POC Treatment Plan/Plan of Care Patient would benefit from OT for education, treatment and training to promote independence in ADL's, mobility, safety and/or upper extremity function for ADL's. Plan of Care: ADL Retraining, Functional Mobility, Group Exercise/Act as Ind, UE Funct Exercise/Act Treatment Duration: Aug 06, 2021 Frequency: At least 5 of 7 days/Wk (IRF) Estimated Hrs Per Day: 1.5 hours per day Agreement: Yes Rehab Potential: Good Time/GCodes Start Time: 09:00 Stop Time: 10:30 Total Time Billed (hr/min): 90 Billed Treatment Time 1, ADL 2 (30), EX (15), FA 3 (45) YAHIR CABRERA OT Jul 27, 2021 10:04
--- NOTE | 2021-07-27 11:51 | Physical Therapy Daily Note ---
PT Daily Note-Current Subjective Patient in bed sleeping pre tx, agrees to PT upon waking, has no pain at rest. Appearance Patient in bed post tx with nurse call, phone, tray, all needs met. Mental Status Patient Orientation: Normal For Age Attachments: Hoffman Catheter Transfers SCALE: Activities may be completed with or without assistive devices. 5-Kxwdodkfff-qhgrpmc completes the activity by him/herself with no assistance from a helper. 5-Set-up or Clean-up Assistance-helper sets up or cleans up; patient completes activity. [place] assists only prior to or following the activity. 4-Supervision or Touching Assistance-helper provides verbal cues and/or touching/steadying and/or contact guard assistance as patient completes activity. Assistance may be provided throughout the activity or intermittently. 3-Partial/Moderate Assistance-helper does LESS THAN HALF the effort. [place] lifts, holds or supports trunk or limbs, but provides less than half the effort. 2-Substantial/Maximal Assistance-helper does MORE THAN HALF the effort. [place] lifts or holds trunk or limbs and provides more than half the effort. 1-Dibgokqdm-nydwgh does ALL the effort. Patient does none of the effort to complete the activity. Or, the assistance of 2 or more helpers is required for the patient to complete the activity. If activity was not attempted, code reason: 7-Patient Refused. 9-Not Applicable-not attempted and the patient did not perform the activity before the current illness, exacerbation or injury. 10-Not Attempted due to Environmental Limitations-(lack of equipment, weather restraints, etc.). 88-Not Attempted due to Medical Conditions or Safety Concerns. Roll Left & Right (QC): 6 Sit to Lying (QC): 4 Lying to Sitting/Side of Bed(Q: 3 Chair/Csm-uu-Zdipb Xfer(QC): 4 Weight Bearing Right Lower Extremity: Right Non Weight Bearing Left Lower Extremity: Left Non Weight Bearing also no bending, twisting, and 10# lifting limit Wheelchair Training Does the Pt Use a Wheelchair?: Yes Wheel 50 ft with 2 turns (QC): 6 Wheel 150 ft (QC): 6 Type of Wheelchair: Manual 600', patient propels slowly, needs several rest breaks Exercises Supine Ex: Ankle pumps, Quad Set, Glut sets, Heel Slides, Short Arc Quads, Straight leg raise, Hip abd/add Supine Reps: 20 (AAROM on the right side with SLR and on the left side with (SAQ, hip abd/add, SLR, HS)) Treatments bed mobility and transfers, LE strengthening, WC mobility Assessment Current Status: Poor Progress Patient developed a lot of pain in his left hip with supine exercises, he only rated it at 5-6/10 but visibly had significant pain, therapist decided to perform WC mobility after that to give patient relief from left hip pain and work on BUE strength. PT Short Term Goals Short Term Goals Time Frame: Jul 29, 2021 Roll Left & Right: 6 Sit to lyin Lying to sitting on side of be: 5 Chair/tzp-gq-idytx transfer: 5 PT Clinical Quality Manager Goals Senior Care Goals PT Clinical Quality Manager Goals Time Frame: Aug 12, 2021 Roll Left & Right (QC): 6 Sit to Lying (QC): 6 Lying-Sitting on Side/Bed(QC): 6 Sit to Stand (QC): 88 Chair/Ixq-rf-Ggwxw Xfer(QC): 6 Toilet Transfer (QC): 6 Car Transfer (QC): 6 Does the Patient Walk: No and Walking Goal NOT indicated Walk 10 feet (QC): 88 Walk 50ft with 2 Turns (QC): 88 Walk 150 ft (QC): 88 Walking 10ft on Uneven Surface: 88 1 Step (curb) (QC): 88 4 Steps (QC): 88 12 Steps (QC): 88 Picking up an Object (QC): 88 Wheel 50 feet with 2 turns (QC: 6 Wheel 150 feet: 6 PT Plan Problem List Problem List: Activity Tolerance, Functional Strength, Safety, Balance, Gait, Transfer, Bed Mobility, ROM Treatment/Plan Treatment Plan: Continue Plan of Care Treatment Plan: Bed Mobility, Education, Functional Activity [place], Functional Strength, Group Therapy, Safety, Therapeutic Exercise, Transfers Treatment Duration: Aug 12, 2021 Frequency: At least 5 of 7 days/Wk (IRF) Estimated Hrs Per Day: 1.5 hours per day Patient and/or Family Agrees t: Yes Safety Risks/Education Patient Education: Transfer Techniques, Reviewed Precautions, Correct Positioning, W/C Management, Safety Issues Teaching Recipient: Patient Teaching Methods: Demonstration, Discussion Response to Teaching: Reinforcement Needed Time/GCodes Time In: 1100 Time Out: 1200 Total Billed Treatment Time: 60 Total Billed Treatment 1 visit EX 20' FA 40' MARNIE KNIGHT PT Jul 27, 2021 11:51
[2021-07-27] MEDS: ACETAMINOPHEN 325 MG TABLET PO PRN ×2 (14:27→21:24)
--- NOTE | 2021-07-27 14:28 | Physical Therapy Daily Note ---
PT Daily Note-Current Subjective Patient in bed pre tx, agrees to PT, has no complaints of pain. Appearance Patient in bed post tx with nurse call, phone, tray, all needs met. Mental Status Patient Orientation: Person, Place, Situation Attachments: Hoffman Catheter Transfers SCALE: Activities may be completed with or without assistive devices. 0-Oslswgagss-qfykfvd completes the activity by him/herself with no assistance from a helper. 5-Set-up or Clean-up Assistance-helper sets up or cleans up; patient completes activity. [place] assists only prior to or following the activity. 4-Supervision or Touching Assistance-helper provides verbal cues and/or touching/steadying and/or contact guard assistance as patient completes activity. Assistance may be provided throughout the activity or intermittently. 3-Partial/Moderate Assistance-helper does LESS THAN HALF the effort. [place] lifts, holds or supports trunk or limbs, but provides less than half the effort. 2-Substantial/Maximal Assistance-helper does MORE THAN HALF the effort. [place] lifts or holds trunk or limbs and provides more than half the effort. 2-Grhhmpngb-hjsito does ALL the effort. Patient does none of the effort to complete the activity. Or, the assistance of 2 or more helpers is required for the patient to complete the activity. If activity was not attempted, code reason: 7-Patient Refused. 9-Not Applicable-not attempted and the patient did not perform the activity before the current illness, exacerbation or injury. 10-Not Attempted due to Environmental Limitations-(lack of equipment, weather restraints, etc.). 88-Not Attempted due to Medical Conditions or Safety Concerns. Roll Left & Right (QC): 6 Sit to Lying (QC): 6 Lying to Sitting/Side of Bed(Q: 6 Chair/Ehf-qq-Xgkol Xfer(QC): 4 Patient performed 4 sliding board transfers total Weight Bearing Right Lower Extremity: Right Non Weight Bearing Left Lower Extremity: Left Non Weight Bearing also no bending, twisting, and 10# lifting limit Wheelchair Training Does the Pt Use a Wheelchair?: Yes Wheel 50 ft with 2 turns (QC): 6 Type of Wheelchair: Manual 120'x2 Exercises NuStep Minutes: 15 NuStep Workload: 1 (no resistance to comply with NWB of BLE, used for ROM) Treatments bed mobility and transfers, LE ROM, UE ROM Assessment Current Status: Poor Progress Patient seemed to have a little more difficulty with sliding board transfers PT Short Term Goals Short Term Goals Time Frame: Jul 29, 2021 Roll Left & Right: 6 Sit to lyin Lying to sitting on side of be: 5 Chair/tne-xu-dyojd transfer: 5 PT Last Code Striper Goals Last Code Striper Goals PT Last Code Striper Goals Time Frame: Aug 12, 2021 Roll Left & Right (QC): 6 Sit to Lying (QC): 6 Lying-Sitting on Side/Bed(QC): 6 Sit to Stand (QC): 88 Chair/Gqd-nv-Jwolr Xfer(QC): 6 Toilet Transfer (QC): 6 Car Transfer (QC): 6 Does the Patient Walk: No and Walking Goal NOT indicated Walk 10 feet (QC): 88 Walk 50ft with 2 Turns (QC): 88 Walk 150 ft (QC): 88 Walking 10ft on Uneven Surface: 88 1 Step (curb) (QC): 88 4 Steps (QC): 88 12 Steps (QC): 88 Picking up an Object (QC): 88 Wheel 50 feet with 2 turns (QC: 6 Wheel 150 feet: 6 PT Plan Problem List Problem List: Activity Tolerance, Functional Strength, Safety, Balance, Gait, Transfer, Bed Mobility, ROM Treatment/Plan Treatment Plan: Continue Plan of Care Treatment Plan: Bed Mobility, Education, Functional Activity [place], Functional Strength, Group Therapy, Safety, Therapeutic Exercise, Transfers Treatment Duration: Aug 12, 2021 Frequency: At least 5 of 7 days/Wk (IRF) Estimated Hrs Per Day: 1.5 hours per day Patient and/or Family Agrees t: Yes Safety Risks/Education Patient Education: Transfer Techniques, Correct Positioning, W/C Management, Safety Issues Teaching Recipient: Patient Teaching Methods: Demonstration, Discussion Response to Teaching: Reinforcement Needed Time/GCodes Time In: 1345 Time Out: 1415 Total Billed Treatment Time: 30 Total Billed Treatment 1 visit EX 15' FA 15' MARNIE KNIGHT PT Jul 27, 2021 14:28
--- NOTE | 2021-07-27 15:00 | ST Cognitive Linguistic Eval ---
Speech Evaluation-General Medical Diagnosis Pelvic Fxs s/p ORIF Onset Date: Jul 12, 2021 Therapy Diagnosis Therapy Diagnosis: Cognitive Linguistic Function WNL Precautions Precautions: Fall Precautions/Isolations: Standard Precautions Referral Referring Physician: Dr. Sandra Avery Reason for Referral: Evaluation/Treatment Medical History Pertinent Medical History: DM, HTN Current History The patient is a 55 year-old male with a past medical history of HTN and diabetes, who presented to [facility] following a fall from a horse horse resulting in a pelvic sacral fracture (s/p ORIF). Reviewed History: Yes Social History Current Living Status: Alone Speech PLF-Current Status Prior Level of Function The patient lived independently prior to admission to the hospital. Subjective The patient was lying in bed, awake and alert upon entrance to his room. The patient greeted the clinician appropriately and was agreeable to participation in the cognitive linguistic assessment. The patient denied any challenges or dif ficulties with his speech, language, cognition, or swallowing. Per patient, he is hard of hearing. Language Eval: Auditory Comprehends Simple Yes/No Ques: Functional Indent/Objects [place]: Functional Ident/Pics in [place]: Functional Follows 1-Step Commands: Functional Follows Complex Directions: Functional Follows General Conversations: Functional Language Eval: Verbal Language Completes Spontaneous Greeting: Functional Produces Auto, Serial Info: Functional Imitates Simple Words/Phrases: Functional Word Finding: Functional Requests Basic Needs: Functional States Basic Personal Info: Functional Expresses Complex Ideas: Functional Language Evaluation: Reading Comprehends Single Nouns: Functional Follows Simple Written Direct: Functional Language Evaluation: Writing Writes to Simple Dictation: Functional Cognitive Patient Orientation The patient is oriented to month, day of week, date, year, and location. Objective Cognitive Domain Attention: WNL Memory: WNL Problem Solving: Moderate, Functional Visuospatial Skills: WNL Composite Severity Rating: WNL Clock Drawing Severity Rating: WN Objective Formal/Standardized Tests [facility] Mental Status ([facility] [place]) Results The patient presented with a score of 30/30 correlating with a normal neurocognitive function (per UMS). Oral Motor/Speech Production The patient does not display dysarthria or apraxia of speech. The patient remains 100% intelligible in known and unknown contexts. Impression The patient is a 56 year old male, who presents with cognitive linguistic skills within normal limits. Speech Patient Assess Expression of Ideas/Wants: Expression (4) Understanding Verbal Content: Understands (4) Brief Interview-Mental Status: Yes Repetition of Three Words: Three (3) Temporal Orientation: Year: Correct (3) Temporal Orientation: Month: Accurate within 5 days(2) Temporal Orientation: Day: Correct (1) Recall : Wear to say "Sock": Yes, no cue required (2) Recall : Color: Yes, no cue required (2) Recall : Bed: Yes, no cue required (2) Memory/Recall Ability: Current season, Location of own room, Staff names and faces, That he or she is in a hsp/hsp unit Speech-Plan Treatment Plan Speech Therapy Treatment Plan: Discontinue ST Treatment Duration: Jul 23, 2021 Frequency: 1 time per week Estimated Hrs Per Day: .25 hour per day Rehab Potential: Good Pt/Family Agrees to Plan: Yes Safety Risks/Education Teaching Recipient: Patient Teaching Methods: Discussion Response to Teaching: Verbalize Understanding Education Topics Provided: Results of Cognitive Lingusitic Evaluation, Plan of Care Time Speech Therapy Time In: 10:30 Speech Therapy Time Out: 10:45 Total Billed Time: 15 Billed Treatment Time 1CRISTIANE ELIZABETH ST Jul 27, 2021 15:00
[2021-07-27 19:37] VITALS: BP 100/64
--- NOTE | 2021-07-28 07:03 | PM&R Progress Note ---
Subjective HPI/CC On Admission Date Seen by Provider: Jul 28, 2021 Time Seen by Provider: 11:00 Subjective/Events-last exam 07/28/2021: Pt really doing well Discharge Monday Left shoulder pain will apply Diclofenac gel and KPad Bowels moved yesterday 07/27/21: Pt is sleeping soundly at this current time Bowels moved today Incision appears to be a little bit irritated but will monitor Pain meds taken occasionally 07/26/21: Patient doing well Pain meds need to be taken before therapy Bowels last moved on Monday Patient refuses all laxatives Noted platelet count of 906 07/25/2021: Patient doing really well The bed change really helped his tailbone Check meds and labs No falls 07/24/2021: Doing very well Using wheelchair Tailbone really hurts so we will change beds No hematuria Bowels are moving 07/23/2021: Patient doing really well Moving around pretty well with weightbearing restriction Cabrera catheter in place Pain is pretty well controlled Working with therapy Review of Systems General: Fatigue, Malaise Objective Exam Vital Signs Vital Signs Date Time Temp Pulse Resp B/P (MAP) Pulse Ox O2 Delivery O2 Flow Rate FiO2 07/28/21 20:24 36.6 105 20 117/66 (83) 96 Room Air Capillary Refill : General Appearance: No Apparent Distress, WD/WN HEENT: PERRL/EOMI, Normal ENT Inspection, Pharynx Normal Neck: Full Range of Motion, Normal Inspection, Non Tender, Supple, Carotid Bruit Respiratory: Chest Non Tender, Lungs Clear, Normal Breath Sounds, No Accessory Muscle Use, No Respiratory Distress Cardiovascular: Regular Rate, Rhythm, No Edema, No Gallop, No JVD, No Murmur, Normal Peripheral Pulses Gastrointestinal: Normal Bowel Sounds, No Organomegaly, No Pulsatile Mass, Non Tender, Soft Back: Normal Inspection, Decreased Range of Motion Extremity: Normal Capillary Refill, Normal Inspection, Non Tender, No Calf Tenderness, No Pedal Edema, Other (limited ROM lower extremities due to pain) Neurologic/Psychiatric: Alert, Oriented x3, Normal Mood/Affect, solar manager II-XII Norm as Tested, Abnormal Gait, Motor Weakness Skin: Normal Color, Warm/Dry Lymphatic: No Adenopathy Results/Procedures Lab Patient resulted labs reviewed. FIM Transfers Therapy Code Descriptions/Definitions Functional [place] Measure: 0=Not Assessed/NA 4=Minimal Assistance 1=Total Assistance 5=Supervision or Setup 2=Maximal Assistance 6=Modified [place] 3=Moderate Assistance 7=Complete IndependenceSCALE: Activities may be completed with or without assistive devices. 1-Cucrxygwsw-cvzvrub completes the activity by him/herself with no assistance from a helper. 5-Set-up or Clean-up Assistance-helper sets up or cleans up; patient completes activity. [place] assists only prior to or following the activity. 4-Supervision or Touching Assistance-helper provides verbal cues and/or touching/steadying and/or contact guard assistance as patient completes activity. Assistance may be provided throughout the activity or intermittently. 3-Partial/Moderate Assistance-helper does LESS THAN HALF the effort. [place] lifts, holds or supports trunk or limbs, but provides less than half the effort. 2-Substantial/Maximal Assistance-helper does MORE THAN HALF the effort. [place] lifts or holds trunk or limbs and provides more than half the effort. 3-Gcoiwrxqw-mhdbxm does ALL the effort. Patient does none of the effort to complete the activity. Or, the assistance of 2 or more helpers is required for the patient to complete the activity. If activity was not attempted, code reason: 7-Patient Refused. 9-Not Applicable-not attempted and the patient did not perform the activity before the current illness, exacerbation or injury. 10-Not Attempted due to Environmental Limitations-(lack of equipment, weather restraints, etc.). 88-Not Attempted due to Medical Conditions or Safety Concerns. Roll Left to Right (QC): 6 Sit to Lying (QC): 6 Sit to Stand (QC): 88 Chair/Wpt-oi-Vxetu Xfer(QC): 4 Car Transfer (QC): 4 Gait Training Does the Patient Walk?: No and Walking Goal NOT indicated Walk 10 feet (QC): 88 Walk 50 ft with 2 Turns(QC): 88 Walk 150 ft (QC): 88 Walking 10ft/uneven surface-QC: 88 Wheelchair Training Does the Pt Use a Wheelchair?: Yes Distance: 600' Wheel 50 ft with 2 turns (QC): 6 Wheel 150 ft (QC): 6 Type of Wheelchair: Manual Stair Training 1 Step (curb) (QC): 88 4 Steps (QC): 88 12 Steps (QC): 88 Balance Picking up an Object (QC): 88 ADL-Treatment Eating (QC): 6 (IND with lunch) Oral Hygiene (QC): 6 (independent ) Bathing Location: L Arm, R Arm, L Upper Leg, R Upper Leg, L Lower Leg (including foot), R Lower Leg (including foot), Chest, Abdomen, Buttocks, Perineal Area Shower/Bathe Self (QC): 5 (Setup/clean up) Upper Body Dressing (QC): 5 (setup/clean up) Lower Body Dressing (QC): 5 (setup/clean up) On/Off Footwear (QC): 5 (setup) Toileting Hygiene (QC): 6 (independent) Toilet Transfer (QC): 4 (SBA ) Assessment/Plan Assessment and Plan Assess & Plan/Chief Complaint Assessment: Pelvic fracture from fall off horse Urethral injury maintained with cabrera cath for 4 weeks DM HTN Elevated BMI DVT PPx Thrombocytosis Hematuria Plan: Rehab protocol Cabrera cath DM management Urology consult 07/23/2021: Rehab protocol Cabrera cath for 4 weeks due to urethral injury 07/24/2021: Maintain Cabrera cath Nonweightbearing status 07/25/2021: Maintain Cabrera catheter Supportive care 07/26/2021: Supportive care Cabrera catheter Evaluate thrombocytosis versus 07/27/21: Monitor closely Pain control 07/28/2021: Pain control Discharge Monday (1) Pelvic fracture (2) Diabetes (3) BMI 33.0-33.9,adult JORGE CRONIN DO Jul 28, 2021 07:03
[2021-07-28 07:50] VITALS: BP 111/73
[2021-07-28] MEDS: ENOXAPARIN 30 MG/0.3 ML (LOVENOX) SYR SQ SCH ×2 (07:54→17:54)
[2021-07-28] MEDS: lisINopril 20 MG (PRINIVIL) TABLET PO SCH (08:18)
[2021-07-28] MEDS: polyethylene glycoL POWDER 17 GM (MIRALAX) PACK PO SCH ×2 (08:18→20:04)
[2021-07-28] MEDS: SENNA W/DOCUSATE (SENOKOT S) TABLET PO SCH ×2 (08:18→20:04)
[2021-07-28] MEDS: metFORMIN 500 MG (GLUCOPHAGE) TAB PO SCH ×2 (08:18→17:53)
[2021-07-28] MEDS: DOCUSATE SODIUM 100 MG (COLACE) CAP PO SCH ×2 (08:18→20:04)
[2021-07-28] MEDS: HYDROcodone/APAP 5 MG/325 MG (LORTAB) TAB PO PRN ×2 (09:47→20:39)
--- NOTE | 2021-07-28 10:03 | Occupational Ther Daily Note ---
OT Current Status-Daily Note Subjective Pt in bed, agreeable to OT tx. Pt has pain in posterior aspect of R shoulder, especially with extending movements of shoulder (reaching back to the wheel on his w/c). 10 pain rating. ADL-Treatment Therapy Code Descriptions/Definitions Functional [place] Measure: 0=Not Assessed/NA 4=Minimal Assistance 1=Total Assistance 5=Supervision or Setup 2=Maximal Assistance 6=Modified [place] 3=Moderate Assistance 7=Complete IndependenceSCALE: Activities may be completed with or without assistive devices. 9-Opoqewjfrp-lleosnh completes the activity by him/herself with no assistance from a helper. 5-Set-up or Clean-up Assistance-helper sets up or cleans up; patient completes activity. [place] assists only prior to or following the activity. 4-Supervision or Touching Assistance-helper provides verbal cues and/or touching/steadying and/or contact guard assistance as patient completes activity. Assistance may be provided throughout the activity or intermittently. 3-Partial/Moderate Assistance-helper does LESS THAN HALF the effort. [place] lifts, holds or supports trunk or limbs, but provides less than half the effort. 2-Substantial/Maximal Assistance-helper does MORE THAN HALF the effort. [place] l ifts or holds trunk or limbs and provides more than half the effort. 9-Kckjzrqno-jvnpio does ALL the effort. Patient does none of the effort to complete the activity. Or, the assistance of 2 or more helpers is required for the patient to complete the activity. If activity was not attempted, code reason: 7-Patient Refused. 9-Not Applicable-not attempted and the patient did not perform the activity before the current illness, exacerbation or injury. 10-Not Attempted due to Environmental Limitations-(lack of equipment, weather restraints, etc.). 88-Not Attempted due to Medical Conditions or Safety Concerns. Eating (QC): 6 Oral Hygiene (QC): 6 (seated at sink.) Shower/Bathe Self (QC): 6 (IND with showering. Able to wash/dry all parts.) Upper Body Dressing (QC): 5 (set up with hide puller shirt.) Lower Body Dressing (QC): 5 (set up with AE. Pt able to thread his own catheter through pants, then use AE for donning/doffing.) On/Off Footwear: 5 (set up with AE) Toileting Hygiene (QC): 6 (IND, pt able to manage clothes and hygiene.) Toilet Transfer (QC): 4 (supervision with SB transfer.) Other Treatment Pt in bed, transferred supine to sit EOB independently. Pt transferred to w/c via SB, then transferred onto toilet. Pt completed toileting, doffed LE clothing, then transferred back to w/c. Pt completed grooming tasks seated at sink independently, then SB transfer to SC. Pt completed shower independently, transferred to w/c and donned clothes. Pt propelled w/c to therapy gym, completed pulleys x5 mins in order to decrease pain in R shoulder. Pt then removed beads from heavy resistance theraputty, able to locate all beads without cues. Pt propelled w/c back to his room, SB transfer to bed. OT placed warm blanket under pt's R shoulder in order to help with pain. Post tx, pt in bed, call light in reach and all needs met. Education OT Patient Education: Correct positioning, Energy conservation, Exercise program, Modified ADL techniques, Progress toward Goal/Update tx plan, Purpose of tx/functional activities, Rehab process Teaching Recipient: Patient Teaching Methods: Discussion Response to Teaching: Verbalize Understanding OT Short Term Goals Short Term Goals Time Frame: Jul 28, 2021 Toileting hygiene: 4 Shower/bathe self: 4 Lower body dressin OT Chcf Goals Chcf Goals Time Frame: Aug 06, 2021 Eating (QC): 6 Oral Hygiene (QC): 6 Toileting Hygiene (QC): 6 Shower/Bathe Self (QC): 6 Upper Body Dressing (QC): 6 Lower Body Dressing (QC): 6 On/Off Footwear (QC): 6 Additional Goals: 1-Demonstrate ADL Tasks, 2-Verbalize Understanding, 3- ImproveStrength/[place] 1=Demonstrate adherence to instructed precautions during ADL tasks. 2=Patient will verbalize/demonstrate understanding of assistive devices/modifications for ADL. 3=Patient will improve strength/tolerance for activity to enable patient to perform ADL's. OT Education/Plan Problem List/Assessment Assessment: Decreased Activ Tolerance, Decreased UE Strength, Impaired I ADL's Discharge Recommendations Plan/Recommendations: Continue POC Treatment Plan/Plan of Care Patient would benefit from OT for education, treatment and training to promote independence in ADL's, mobility, safety and/or upper extremity function for ADL's. Plan of Care: ADL Retraining, Functional Mobility, Group Exercise/Act as Ind, UE Funct Exercise/Act Treatment Duration: Aug 06, 2021 Frequency: At least 5 of 7 days/Wk (IRF) Estimated Hrs Per Day: 1.5 hours per day Agreement: Yes Rehab Potential: Good Time/GCodes Start Time: 09:30 Stop Time: 11:00 Total Time Billed (hr/min): 90 Billed Treatment Time 1, ADL 4 (65'), FA 2 (25') YAHIR CABRERA OT Jul 28, 2021 10:03
--- NOTE | 2021-07-28 11:57 | Physical Therapy Daily Note ---
PT Daily Note-Current Subjective Pt. agrees to Rx . States he wants to leave "[facility]" "If I have HC nursing or PT I would be fine" states he is having cramping in his right triceps and doesnt feel he can or should TRF into w/c right now. Agrees to triceps stretches and bed exercise, bed mob etc. Pt. 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 Pain Numeric Pain Scale: 5-Moderate Pain Location: Right Location Body Site: Arm (triceps) Pain Description: Cramping Appearance urine more clear than previous Txs, pt. holding and rubbing right triceps Mental Status Patient Orientation: Listless Transfers SCALE: Activities may be completed with or without assistive devices. 5-Snttctdkxc-zlwuqkm completes the activity by him/herself with no assistance from a helper. 5-Set-up or Clean-up Assistance-helper sets up or cleans up; patient completes activity. [place] assists only prior to or following the activity. 4-Supervision or Touching Assistance-helper provides verbal cues and/or touching/steadying and/or contact guard assistance as patient completes activity. Assistance may be provided throughout the activity or intermittently. 3-Partial/Moderate Assistance-helper does LESS THAN HALF the effort. [place] lifts, holds or supports trunk or limbs, but provides less than half the effort. 2-Substantial/Maximal Assistance-helper does MORE THAN HALF the effort. [place] lifts or holds trunk or limbs and provides more than half the effort. 6-Pudnefiny-omluim does ALL the effort. Patient does none of the effort to complete the activity. Or, the assistance of 2 or more helpers is required for the patient to complete the activity. If activity was not attempted, code reason: 7-Patient Refused. 9-Not Applicable-not attempted and the patient did not perform the activity before the current illness, exacerbation or injury. 10-Not Attempted due to Environmental Limitations-(lack of equipment, weather restraints, etc.). 88-Not Attempted due to Medical Conditions or Safety Concerns. Roll Left & Right (QC): 6 Sit to Lying (QC): 6 Lying to Sitting/Side of Bed(Q: 6 Weight Bearing Right Lower Extremity: Right Non Weight Bearing Left Lower Extremity: Left Non Weight Bearing also no bending, twisting, and 10# lifting limit Exercises Supine Ex: Ankle pumps, Pelvic tilt, Quad Set, Rolling, Glut sets, Heel Slides, Short Arc Quads, Scooting (up in bed with UEs), Straight leg raise (HS stretches with assist), Hip abd/add, Bicep Curls Supine Reps: 20 hooklying hip int ext rotation , supine hip int ext rotation each x 20 , triceps stretches x 5 with 20 sec hold, Treatments above exercises and bed mob as stated as well as warm blanket to right triceps and over pt as requested Assessment Current Status: Good Progress PT Short Term Goals Short Term Goals Time Frame: Jul 29, 2021 Roll Left & Right: 6 Sit to lyin Lying to sitting on side of be: 5 Chair/qrf-gd-efiaa transfer: 5 PT Conditioning Machine Operator Goals Conditioning Machine Operator Goals PT Conditioning Machine Operator Goals Time Frame: Aug 12, 2021 Roll Left & Right (QC): 6 Sit to Lying (QC): 6 Lying-Sitting on Side/Bed(QC): 6 Sit to Stand (QC): 88 Chair/Tny-mt-Iwnal Xfer(QC): 6 Toilet Transfer (QC): 6 Car Transfer (QC): 6 Does the Patient Walk: No and Walking Goal NOT indicated Walk 10 feet (QC): 88 Walk 50ft with 2 Turns (QC): 88 Walk 150 ft (QC): 88 Walking 10ft on Uneven Surface: 88 1 Step (curb) (QC): 88 4 Steps (QC): 88 12 Steps (QC): 88 Picking up an Object (QC): 88 Wheel 50 feet with 2 turns (QC: 6 Wheel 150 feet: 6 PT Plan Treatment/Plan Treatment Plan: Continue Plan of Care Treatment Plan: Bed Mobility, Education, Functional Activity [place], Functional Strength, Group Therapy, Safety, Therapeutic Exercise, Transfers Treatment Duration: Aug 12, 2021 Frequency: At least 5 of 7 days/Wk (IRF) Estimated Hrs Per Day: 1.5 hours per day Patient and/or Family Agrees t: Yes Safety Risks/Education Patient Education: Transfer Techniques, Reviewed Precautions, Correct Positioning, Disease Process, Safety Issues Teaching Recipient: Patient Teaching Methods: Demonstration, Discussion Response to Teaching: Verbalize Understanding, Return Demonstration Time/GCodes Time In: 1100 Time Out: 1200 Total Billed Treatment Time: 60 Total Billed Treatment 1,FA10m,EX50m RHIANNON GRANDE COUNTER STACKER Jul 28, 2021 11:57
[2021-07-28] MEDS: DICLOFENAC 1% GEL 100 GM (VOLTAREN) TUBE TOP SCH ×3 (13:38→20:04)
--- NOTE | 2021-07-28 14:07 | Physical Therapy Daily Note ---
PT Daily Note-Current Subjective Pt. in bed asleep , has not eaten lunch and states he is just very tired. Pt agrees to bed TRF sup to sit to sup and therx. "Naomie been up several times today, Im not getting up right now" Pt. comments that he will have to remember to manage/ handle his cabrera catheter at home if he has to go home with it Pain Numeric Pain Scale: 5-Moderate Pain Location: Left Location Body Site: Hip Mental Status Patient Orientation: Normal For Age Attachments: Cabrera Catheter hard of hearing Transfers SCALE: Activities may be completed with or without assistive devices. 4-Spnltuefah-bguhgsk completes the activity by him/herself with no assistance from a helper. 5-Set-up or Clean-up Assistance-helper sets up or cleans up; patient completes activity. [place] assists only prior to or following the activity. 4-Supervision or Touching Assistance-helper provides verbal cues and/or touching/steadying and/or contact guard assistance as patient completes activity. Assistance may be provided throughout the activity or intermittently. 3-Partial/Moderate Assistance-helper does LESS THAN HALF the effort. [place] lifts, holds or supports trunk or limbs, but provides less than half the effort. 2-Substantial/Maximal Assistance-helper does MORE THAN HALF the effort. [place] lifts or holds trunk or limbs and provides more than half the effort. 2-Dcmqjnwwa-lmfyng does ALL the effort. Patient does none of the effort to complete the activity. Or, the assistance of 2 or more helpers is required for the patient to complete the activity. If activity was not attempted, code reason: 7-Patient Refused. 9-Not Applicable-not attempted and the patient did not perform the activity before the current illness, exacerbation or injury. 10-Not Attempted due to Environmental Limitations-(lack of equipment, weather restraints, etc.). 88-Not Attempted due to Medical Conditions or Safety Concerns. Roll Left & Right (QC): 6 Sit to Lying (QC): 6 Lying to Sitting/Side of Bed(Q: 6 Weight Bearing Right Lower Extremity: Right Non Weight Bearing Left Lower Extremity: Left Non Weight Bearing also no bending, twisting, and 10# lifting limit Exercises Supine Ex: Ankle pumps, Rolling, Heel Slides, Hip abd/add Supine Reps: 15 Seated Therapy Exercises: Ankle pumps, Long arc quads Seated Reps: 15 Treatments pt. demonstrates sup to side to sit so supine as well as pullig himself up in bed using UEs only. Pt. participated in LE ex in sup and sit as recorded. In bed on right side after Rx with call sr and phone at hand Assessment Current Status: Good Progress fatigued today and c/o some left hip pain. poor appetite PT Short Term Goals Short Term Goals Time Frame: Jul 29, 2021 Roll Left & Right: 6 Sit to lyin Lying to sitting on side of be: 5 Chair/bbx-cu-kwfsd transfer: 5 PT Senior Living Goals Senior Living Goals PT Food Handler Goals Time Frame: Aug 12, 2021 Roll Left & Right (QC): 6 Sit to Lying (QC): 6 Lying-Sitting on Side/Bed(QC): 6 Sit to Stand (QC): 88 Chair/Muc-vn-Sttjm Xfer(QC): 6 Toilet Transfer (QC): 6 Car Transfer (QC): 6 Does the Patient Walk: No and Walking Goal NOT indicated Walk 10 feet (QC): 88 Walk 50ft with 2 Turns (QC): 88 Walk 150 ft (QC): 88 Walking 10ft on Uneven Surface: 88 1 Step (curb) (QC): 88 4 Steps (QC): 88 12 Steps (QC): 88 Picking up an Object (QC): 88 Wheel 50 feet with 2 turns (QC: 6 Wheel 150 feet: 6 PT Plan Treatment/Plan Treatment Plan: Continue Plan of Care Treatment Plan: Bed Mobility, Education, Functional Activity [place], Functional Strength, Group Therapy, Safety, Therapeutic Exercise, Transfers Treatment Duration: Aug 12, 2021 Frequency: At least 5 of 7 days/Wk (IRF) Estimated Hrs Per Day: 1.5 hours per day Patient and/or Family Agrees t: Yes Safety Risks/Education Patient Education: Transfer Techniques, Reviewed Precautions, Correct Positioning, Safety Issues Teaching Recipient: Patient Teaching Methods: Demonstration, Discussion Response to Teaching: Verbalize Understanding, Return Demonstration, Reinforcement Needed Time/GCodes Time In: 1335 Time Out: 1405 Total Billed Treatment Time: 30 Total Billed Treatment 1,FA15m,EX15m RHIANNON GRANDE [employer] SALES REPRESENTATIVE Jul 28, 2021 14:07
[2021-07-28 20:24] VITALS: BP 117/66
[2021-07-29] MEDS: ENOXAPARIN 30 MG/0.3 ML (LOVENOX) SYR SQ SCH ×2 (04:35→17:38)
[2021-07-29] MEDS: HYDROcodone/APAP 5 MG/325 MG (LORTAB) TAB PO PRN ×3 (04:35→21:07)
--- NOTE | 2021-07-29 06:01 | PM&R Progress Note ---
Subjective HPI/CC On Admission Date Seen by Provider: Jul 29, 2021 Time Seen by Provider: 10:00 Subjective/Events-last exam 07/29/2021: Patient doing really well Discharge plan for tomorrow No other concerns 07/28/2021: Pt really doing well Discharge Monday Left shoulder pain will apply Diclofenac gel and KPad Bowels moved yesterday 07/27/21: Pt is sleeping soundly at this current time Bowels moved today Incision appears to be a little bit irritated but will monitor Pain meds taken occasionally 07/26/21: Patient doing well Pain meds need to be taken before therapy Bowels last moved on Monday Patient refuses all laxatives Noted platelet count of 906 07/25/2021: Patient doing really well The bed change really helped his tailbone Check meds and labs No falls 07/24/2021: Doing very well Using wheelchair Tailbone really hurts so we will change beds No hematuria Bowels are moving 07/23/2021: Patient doing really well Moving around pretty well with weightbearing restriction Cabrera catheter in place Pain is pretty well controlled Working with therapy Review of Systems Musculoskeletal: leg pain Objective Exam Vital Signs Vital Signs Date Time Temp Pulse Resp B/P (MAP) Pulse Ox O2 Delivery O2 Flow Rate FiO2 07/29/21 21:14 36.6 107 24 110/71 (84) 95 Room Air Capillary Refill : General Appearance: No Apparent Distress, WD/WN HEENT: PERRL/EOMI, Normal ENT Inspection, Pharynx Normal Neck: Full Range of Motion, Normal Inspection, Non Tender, Supple, Carotid Bruit Respiratory: Chest Non Tender, Lungs Clear, Normal Breath Sounds, No Accessory Muscle Use, No Respiratory Distress Cardiovascular: Regular Rate, Rhythm, No Edema, No Gallop, No JVD, No Murmur, Normal Peripheral Pulses Gastrointestinal: Normal Bowel Sounds, No Organomegaly, No Pulsatile Mass, Non Tender, Soft Back: Normal Inspection, Decreased Range of Motion Extremity: Normal Capillary Refill, Normal Inspection, Non Tender, No Calf Tenderness, No Pedal Edema, Other (limited ROM lower extremities due to pain) Neurologic/Psychiatric: Alert, Oriented x3, Normal Mood/Affect, histology manager II-XII Norm as Tested, Abnormal Gait, Motor Weakness Skin: Normal Color, Warm/Dry Lymphatic: No Adenopathy Results/Procedures Lab Patient resulted labs reviewed. FIM Transfers Therapy Code Descriptions/Definitions Functional [place] Measure: 0=Not Assessed/NA 4=Minimal Assistance 1=Total Assistance 5=Supervision or Setup 2=Maximal Assistance 6=Modified [place] 3=Moderate Assistance 7=Complete IndependenceSCALE: Activities may be completed with or without assistive devices. 6-Hwxhbmhbtj-uitszpa completes the activity by him/herself with no assistance from a helper. 5-Set-up or Clean-up Assistance-helper sets up or cleans up; patient completes activity. [place] assists only prior to or following the activity. 4-Supervision or Touching Assistance-helper provides verbal cues and/or t ouching/steadying and/or contact guard assistance as patient completes activity. Assistance may be provided throughout the activity or intermittently. 3-Partial/Moderate Assistance-helper does LESS THAN HALF the effort. [place] lifts, holds or supports trunk or limbs, but provides less than half the effort. 2-Substantial/Maximal Assistance-helper does MORE THAN HALF the effort. [place] lifts or holds trunk or limbs and provides more than half the effort. 6-Ngyxalbzt-mdwzem does ALL the effort. Patient does none of the effort to complete the activity. Or, the assistance of 2 or more helpers is required for the patient to complete the activity. If activity was not attempted, code reason: 7-Patient Refused. 9-Not Applicable-not attempted and the patient did not perform the activity before the current illness, exacerbation or injury. 10-Not Attempted due to Environmental Limitations-(lack of equipment, weather restraints, etc.). 88-Not Attempted due to Medical Conditions or Safety Concerns. Roll Left to Right (QC): 6 Sit to Lying (QC): 6 Sit to Stand (QC): 88 Chair/Woi-he-Jfafn Xfer(QC): 4 Car Transfer (QC): 4 Gait Training Does the Patient Walk?: No and Walking Goal NOT indicated Walk 10 feet (QC): 88 Walk 50 ft with 2 Turns(QC): 88 Walk 150 ft (QC): 88 Walking 10ft/uneven surface-QC: 88 Wheelchair Training Does the Pt Use a Wheelchair?: Yes Distance: 600' Wheel 50 ft with 2 turns (QC): 6 Wheel 150 ft (QC): 6 Type of Wheelchair: Manual Stair Training 1 Step (curb) (QC): 88 4 Steps (QC): 88 12 Steps (QC): 88 Balance Picking up an Object (QC): 88 ADL-Treatment Eating (QC): 6 Oral Hygiene (QC): 6 (seated at sink.) Bathing Location: L Arm, R Arm, L Upper Leg, R Upper Leg, L Lower Leg (including foot), R Lower Leg (including foot), Chest, Abdomen, Buttocks, Perineal Area Shower/Bathe Self (QC): 6 (IND with showering. Able to wash/dry all parts.) Upper Body Dressing (QC): 5 (set up with pulley man shirt.) Lower Body Dressing (QC): 5 (set up with AE. Pt able to thread his own catheter through pants, then use AE for donning/doffing.) On/Off Footwear (QC): 5 (set up with AE) Toileting Hygiene (QC): 6 (IND, pt able to manage clothes and hygiene.) Toilet Transfer (QC): 4 (supervision with SB transfer.) Assessment/Plan Assessment and Plan Assess & Plan/Chief Complaint Assessment: Pelvic fracture from fall off horse Urethral injury maintained with cabrera cath for 4 weeks DM HTN Elevated BMI DVT PPx Thrombocytosis Hematuria Plan: Rehab protocol Cabrera cath DM management Urology consult 07/23/2021: Rehab protocol Cabrera cath for 4 weeks due to urethral injury 07/24/2021: Maintain Cabrera cath Nonweightbearing status 07/25/2021: Maintain Cabrera catheter Supportive care 07/26/2021: Supportive care Cabrera catheter Evaluate thrombocytosis versus 07/27/21: Monitor closely Pain control 07/28/2021: Pain control Discharge Monday07/29/2021: Supportive care Pain control (1) Pelvic fracture (2) Diabetes (3) BMI 33.0-33.9,adult JORGE CRONIN DO Jul 29, 2021 06:01
[2021-07-29 07:17] VITALS: BP 109/70
[2021-07-29] MEDS: lisINopril 20 MG (PRINIVIL) TABLET PO SCH (08:16)
[2021-07-29] MEDS: metFORMIN 500 MG (GLUCOPHAGE) TAB PO SCH ×2 (08:16→17:38)
--- NOTE | 2021-07-29 08:58 | Occupational Ther Daily Note ---
OT Current Status-Daily Note Subjective Pt agreeable to OT Tx. Mental Status/Objective Patient Orientation: Normal For Age Attachments: Hoffman Catheter ADL-Treatment Therapy Code Descriptions/Definitions Functional [place] Measure: 0=Not Assessed/NA 4=Minimal Assistance 1=Total Assistance 5=Supervision or Setup 2=Maximal Assistance 6=Modified [place] 3=Moderate Assistance 7=Complete IndependenceSCALE: Activities may be completed with or without assistive devices. 5-Dygjngxxjj-viwwhfd completes the activity by him/herself with no assistance from a helper. 5-Set-up or Clean-up Assistance-helper sets up or cleans up; patient completes activity. [place] assists only prior to or following the activity. 4-Supervision or Touching Assistance-helper provides verbal cues and/or touching/steadying and/or contact guard assistance as patient completes activity. Assistance may be provided throughout the activity or intermittently. 3-Partial/Moderate Assistance-helper does LESS THAN HALF the effort. [place] lifts, holds or supports trunk or limbs, but provides less than half the effort. 2-Substantial/Maximal Assistance-helper does MORE THAN HALF the effort. [place] lifts or holds trunk or limbs and provides more than half the effort. 4-Dgiaewzdq-qmijek does ALL the effort. Patient does none of the effort to co mplete the activity. Or, the assistance of 2 or more helpers is required for the patient to complete the activity. If activity was not attempted, code reason: 7-Patient Refused. 9-Not Applicable-not attempted and the patient did not perform the activity before the current illness, exacerbation or injury. 10-Not Attempted due to Environmental Limitations-(lack of equipment, weather restraints, etc.). 88-Not Attempted due to Medical Conditions or Safety Concerns. Eating (QC): 6 (IND with breakfast) Oral Hygiene (QC): 6 (IND seated at sink.) Toileting Hygiene (QC): 6 (IND with clothing managment and hygiene) Other Treatment Pt in bed, agreeable to OT Tx. Pt repositioned self in bed independently, and finished eating breakfast. Pt transferred supine to sit EOB, independently, then SB transfer to w/c. Pt shaved at sink independently, then SB transfer to toilet. Pt completed toileting, independently, then SB transfer back to w/c. Assistance needed to hold w/c due to it wanting to slide on the hard floor. Pt sat at sink to brush his teeth and wash his hands independently. Pt propelled w/c to therapy gym. In order to increase ROM, decrease pain, provide stretching in RUE, and to increase performance with mobility/transfers and ADLs, pt completed pulleys x5 mins, no rest breaks. Pt then completed pegboard, placing/removing x100 pegs, BUEs in order to increase activity tolerance. No weights added due to pt reporting his R shoulder has been irritated, and didn't want to cause increased pain. Pt then removed beads from heavy resistance theraputty in order to increase fine motor strength.Pt propelled w/c back to his room, transferring back to bed via SB. Post tx, pt supine in bed, call light in reach and all needs met. Education OT Patient Education: Correct positioning, Energy conservation, Exercise program, Modified ADL techniques, Progress toward Goal/Update tx plan, Purpose of tx/functional activities Teaching Recipient: Patient Teaching Methods: Discussion Response to Teaching: Verbalize Understanding OT Short Term Goals Short Term Goals Time Frame: Jul 28, 2021 Toileting hygiene: 4 Shower/bathe self: 4 Lower body dressin OT Residential Goals Residential Goals Time Frame: Aug 06, 2021 Eating (QC): 6 (met) Oral Hygiene (QC): 6 (met) Toileting Hygiene (QC): 6 (met) Shower/Bathe Self (QC): 6 (met) Upper Body Dressing (QC): 6 (not met) Lower Body Dressing (QC): 6 (not met) On/Off Footwear (QC): 6 (not met) Additional Goals: 1-Demonstrate ADL Tasks, 2-Verbalize Understanding, 3- ImproveStrength/[place] 1=Demonstrate adherence to instructed precautions during ADL tasks. 2=Patient will verbalize/demonstrate understanding of assistive devices/ modifications for ADL. 3=Patient will improve strength/tolerance for activity to enable patient to perform ADL's. OT Education/Plan Problem List/Assessment Assessment: Decreased Activ Tolerance, Impaired I ADL's Discharge Recommendations Plan/Recommendations: Continue POC Treatment Plan/Plan of Care Patient would benefit from OT for education, treatment and training to promote independence in ADL's, mobility, safety and/or upper extremity function for ADL's. Plan of Care: ADL Retraining, Functional Mobility, Group Exercise/Act as Ind, UE Funct Exercise/Act Treatment Duration: Aug 06, 2021 Frequency: At least 5 of 7 days/Wk (IRF) Estimated Hrs Per Day: 1.5 hours per day Agreement: Yes Rehab Potential: Good Time/GCodes Start Time: 07:50 Stop Time: 09:20 Total Time Billed (hr/min): 90 Billed Treatment Time 1, ADL 4 (55'), FA 2 (35') YAHIR CABRERA OT Jul 29, 2021 08:58
[2021-07-29] MEDS: SENNA W/DOCUSATE (SENOKOT S) TABLET PO SCH ×2 (09:00→19:40)
[2021-07-29] MEDS: DOCUSATE SODIUM 100 MG (COLACE) CAP PO SCH ×2 (09:00→19:39)
[2021-07-29] MEDS: DICLOFENAC 1% GEL 100 GM (VOLTAREN) TUBE TOP SCH ×4 (09:00→21:08)
[2021-07-29] MEDS: polyethylene glycoL POWDER 17 GM (MIRALAX) PACK PO SCH ×2 (09:00→19:40)
--- NOTE | 2021-07-29 11:49 | Physical Therapy Daily Note ---
PT Daily Note-Current Subjective Patient in bed pre tx, agrees to PT, has no complaints of pain at rest. Appearance Patient on toilet post tx with nurse call, by the end of tx he says his bottom was getting a little sore. Mental Status Patient Orientation: Normal For Age Attachments: Hoffman Catheter Transfers SCALE: Activities may be completed with or without assistive devices. 2-Ixpemjwcet-tnupdck completes the activity by him/herself with no assistance from a helper. 5-Set-up or Clean-up Assistance-helper sets up or cleans up; patient completes activity. [place] assists only prior to or following the activity. 4-Supervision or Touching Assistance-helper provides verbal cues and/or touching/steadying and/or contact guard assistance as patient completes activity. Assistance may be provided throughout the activity or intermittently. 3-Partial/Moderate Assistance-helper does LESS THAN HALF the effort. [place] lifts, holds or supports trunk or limbs, but provides less than half the effort. 2-Substantial/Maximal Assistance-helper does MORE THAN HALF the effort. [place] lifts or holds trunk or limbs and provides more than half the effort. 5-Kwpmemiim-zcpsot does ALL the effort. Patient does none of the effort to complete the activity. Or, the assistance of 2 or more helpers is required for the patient to complete the activity. If activity was not attempted, code reason: 7-Patient Refused. 9-Not Applicable-not attempted and the patient did not perform the activity before the current illness, exacerbation or injury. 10-Not Attempted due to Environmental Limitations-(lack of equipment, weather restraints, etc.). 88-Not Attempted due to Medical Conditions or Safety Concerns. Roll Left & Right (QC): 6 Sit to Lying (QC): 6 Lying to Sitting/Side of Bed(Q: 6 Sit to Stand (QC): 88 Chair/Aju-aq-Gamul Xfer(QC): 4 Toilet Transfer (QC): 4 Car Transfer (QC): 4 Patient performs rolling and supine <-> sit with independence, sliding board transfer SBA, car transfer SBA. Patient needs occasional cues for sliding board placement and positioning during transfers. Weight Bearing Right Lower Extremity: Right Non Weight Bearing Left Lower Extremity: Left Non Weight Bearing also no bending, twisting, and 10# lifting limit Gait Training Walk 10 feet (QC): 88 Walk 50 ft with 2 Turns(QC): 88 Walk 150 ft (QC): 88 Walking 10ft/uneven surface-QC: 88 Wheelchair Training Does the Pt Use a Wheelchair?: Yes Wheel 50 ft with 2 turns (QC): 6 Wheel 150 ft (QC): 6 Type of Wheelchair: Manual Patient can propel a manual WC over 600' with independence, patient went up and down a ramp without assist, he needs occasional rest breaks due to arm fatigue. Stair Training 1 Step (curb) (QC): 88 4 Steps (QC): 88 12 Steps (QC): 88 Balance Picking up an Object (QC): 9 Exercises NuStep Minutes: 15 NuStep Workload: 1 (no resistance due to weight bearing restrictions on legs, used for ROM of legs) Treatments bed mobility and transfers, WC mobility, ROM Assessment Current Status: Fair Progress good progress overall but still is not independent with sliding board transfers PT Short Term Goals Short Term Goals Time Frame: Jul 29, 2021 Roll Left & Right: 6 Sit to lyin Lying to sitting on side of be: 5 Chair/byx-ag-nukje transfer: 5 PT Custodial Goals Custodial Goals PT [employer] Agent Goals Time Frame: Aug 12, 2021 Roll Left & Right (QC): 6 Sit to Lying (QC): 6 Lying-Sitting on Side/Bed(QC): 6 Sit to Stand (QC): 88 Chair/Bly-sm-Izenl Xfer(QC): 6 Toilet Transfer (QC): 6 Car Transfer (QC): 6 Does the Patient Walk: No and Walking Goal NOT indicated Walk 10 feet (QC): 88 Walk 50ft with 2 Turns (QC): 88 Walk 150 ft (QC): 88 Walking 10ft on Uneven Surface: 88 1 Step (curb) (QC): 88 4 Steps (QC): 88 12 Steps (QC): 88 Picking up an Object (QC): 88 Wheel 50 feet with 2 turns (QC: 6 Wheel 150 feet: 6 PT Plan Problem List Problem List: Activity Tolerance, Functional Strength, Safety, Balance, Gait, Transfer, Bed Mobility, ROM Treatment/Plan Treatment Plan: Continue Plan of Care Treatment Plan: Bed Mobility, Education, Functional Activity [place], Functional Strength, Group Therapy, Safety, Therapeutic Exercise, Transfers Treatment Duration: Aug 12, 2021 Frequency: At least 5 of 7 days/Wk (IRF) Estimated Hrs Per Day: 1.5 hours per day Patient and/or Family Agrees t: Yes Safety Risks/Education Patient Education: Transfer Techniques, Reviewed Precautions, Correct Positioning, W/C Management, Safety Issues Teaching Recipient: Patient Teaching Methods: Demonstration, Discussion Response to Teaching: Reinforcement Needed Time/GCodes Time In: 1100 Time Out: 1200 Total Billed Treatment Time: 60 Total Billed Treatment 1 visit EX 15' FA 45' MARNIE KNIGHT PT Jul 29, 2021 11:49
--- NOTE | 2021-07-29 14:08 | Physical Therapy Daily Note ---
PT Daily Note-Current Subjective Patient in bed pre tx, agrees to PT, has no complaints of pain. Appearance Patient in bed post tx with nurse call, phone, tray, all needs met. Mental Status Patient Orientation: Person, Place, Situation, Normal For Age Transfers SCALE: Activities may be completed with or without assistive devices. 6-Chjmjsahvw-pzqimvu completes the activity by him/herself with no assistance from a helper. 5-Set-up or Clean-up Assistance-helper sets up or cleans up; patient completes activity. [place] assists only prior to or following the activity. 4-Supervision or Touching Assistance-helper provides verbal cues and/or touching/steadying and/or contact guard assistance as patient completes activity. Assistance may be provided throughout the activity or intermittently. 3-Partial/Moderate Assistance-helper does LESS THAN HALF the effort. [place] lifts, holds or supports trunk or limbs, but provides less than half the effort. 2-Substantial/Maximal Assistance-helper does MORE THAN HALF the effort. [place] lifts or holds trunk or limbs and provides more than half the effort. 6-Xkhnqzmsm-dwhoqq does ALL the effort. Patient does none of the effort to complete the activity. Or, the assistance of 2 or more helpers is required for the patient to complete the activity. If activity was not attempted, code reason: 7-Patient Refused. 9-Not Applicable-not attempted and the patient did not perform the activity before the current illness, exacerbation or injury. 10-Not Attempted due to Environmental Limitations-(lack of equipment, weather restraints, etc.). 88-Not Attempted due to Medical Conditions or Safety Concerns. Weight Bearing Right Lower Extremity: Right Non Weight Bearing Left Lower Extremity: Left Non Weight Bearing also no bending, twisting, and 10# lifting limit Exercises Supine Ex: Ankle pumps, Quad Set, Glut sets, Heel Slides, Short Arc Quads, Straight leg raise, Hip abd/add Supine Reps: 20 (AAROM on the RLE with hip abd/add, and SLR and HS) Treatments LE strengthening Assessment Current Status: Fair Progress improving BLE strength PT Short Term Goals Short Term Goals Time Frame: Jul 29, 2021 Roll Left & Right: 6 Sit to lyin Lying to sitting on side of be: 5 Chair/rvq-ry-fkhxw transfer: 5 PT Social Service Technician Goals Usp Goals PT Social Service Technician Goals Time Frame: Aug 12, 2021 Roll Left & Right (QC): 6 Sit to Lying (QC): 6 Lying-Sitting on Side/Bed(QC): 6 Sit to Stand (QC): 88 Chair/Dyj-gb-Ofqsg Xfer(QC): 6 Toilet Transfer (QC): 6 Car Transfer (QC): 6 Does the Patient Walk: No and Walking Goal NOT indicated Walk 10 feet (QC): 88 Walk 50ft with 2 Turns (QC): 88 Walk 150 ft (QC): 88 Walking 10ft on Uneven Surface: 88 1 Step (curb) (QC): 88 4 Steps (QC): 88 12 Steps (QC): 88 Picking up an Object (QC): 88 Wheel 50 feet with 2 turns (QC: 6 Wheel 150 feet: 6 PT Plan Problem List Problem List: Activity Tolerance, Functional Strength, Safety, Balance, Gait, Transfer, Bed Mobility, ROM Treatment/Plan Treatment Plan: Continue Plan of Care Treatment Plan: Bed Mobility, Education, Functional Activity [place], Functional Strength, Group Therapy, Safety, Therapeutic Exercise, Transfers Treatment Duration: Aug 12, 2021 Frequency: At least 5 of 7 days/Wk (IRF) Estimated Hrs Per Day: 1.5 hours per day Patient and/or Family Agrees t: Yes Safety Risks/Education Patient Education: Correct Positioning, Safety Issues Teaching Recipient: Patient Teaching Methods: Demonstration, Discussion Response to Teaching: Reinforcement Needed Time/GCodes Time In: 1345 Time Out: 1415 Total Billed Treatment Time: 30 Total Billed Treatment 1 visit EX 30' MARNIE KNIGHT PT Jul 29, 2021 14:08
[2021-07-29 21:14] VITALS: BP 110/71
[2021-07-30] MEDS: HYDROcodone/APAP 5 MG/325 MG (LORTAB) TAB PO PRN ×2 (05:55→10:40)
[2021-07-30] MEDS: ENOXAPARIN 30 MG/0.3 ML (LOVENOX) SYR SQ SCH (05:55)
[2021-07-30] MEDS ORDERED: METF-397 PO (06:33)
[2021-07-30] MEDS ORDERED: DICL100G13 TOP (06:33)
[2021-07-30] MEDS ORDERED: ACHD5005 PO ×2 (06:33→09:26)
[2021-07-30] MEDS ORDERED: LISI20TA26 PO (06:33)
[2021-07-30] MEDS ORDERED: MTP25TSR PO (06:33)
[2021-07-30] MEDS ORDERED: ATOR40TA70 PO (06:33)
--- NOTE | 2021-07-30 06:35 | D/C HH Face to Face Order ---
D/C HH Face to Face Orders Reconcile Patient Problems Problems Reviewed?: Yes Instructions for Patient HH Patient Instructions/FollowUp: PCP 1 week Trauma surgery as scheduled Physician to follow Patient: PCP Discharge Diet for Home: No Restrictions Patient Problems: Fractures Patient Data-Allergies,Ht & Wt Patient Allergies: Coded Allergies: No Known Drug Allergies (Unverified , 07/22/21) Home Health Need/Face to Face Date of Face to Face: Jul 30, 2021 Clinical Findings: Generalized weakness and fatigue, Instability, Muscle weakness, Non or partial weight bearing I have seen Pt rlnz-dc-hrjr: Yes Discharged To: Home Diagnosis/Conditions: Debility Patient is Homebound due to: Muscle weakness, Pain w/ambulation Homebound Status Due to the above stated illness, injury or surgical procedure (medical condition or diagnosis) and associated clinical findings, the patient is homebound because of his/her inability to leave home except with aid of a supportive device and/or person AND leaving the home requires a considerable and taxing effort or is medically contraindicated. Pt req the following assistanc: Wheelchair Home Health Nursing Orders Home Health Services Order: Nursing Services, Field Technical Specialist-Evaluate & Treat, Physical Therapy-Evaluate & Treat Certify Stmt I certify that this patient is under my care and that I, a nurse practitioner or a physician; a animal care assistant working with me, had a face to face encounter that - meets the physician face to face encounter requirements with this patient as dated. JORGE CRONIN DO Jul 30, 2021 06:35
--- NOTE | 2021-07-30 06:36 | Discharge Summary ---
Diagnosis/Chief Complaint Date of Admission Jul 22, 2021 at 12:30 Date of Discharge Discharge Date: Jul 30, 2021 Discharge Diagnosis Assessment: Pelvic fracture from fall off horse Urethral injury maintained with cabrera cath for 4 weeks DM HTN Elevated BMI DVT PPx Thrombocytosis Hematuria Plan: Rehab protocol Cabrera cath DM management Urology consult 07/23/2021: Rehab protocol Cabrera cath for 4 weeks due to urethral injury 07/24/2021: Maintain Cabrera cath Nonweightbearing status 07/25/2021: Maintain Cabrera catheter Supportive care 07/26/2021: Supportive care Cabrera catheter Evaluate thrombocytosis versus 07/27/21: Monitor closely Pain control 07/28/2021: Pain control Discharge Monday07/29/2021: Supportive care Pain control (1) Pelvic fracture (2) Diabetes (3) BMI 33.0-33.9,adult Discharge Summary Discharge Physical Examination Allergies: Coded Allergies: No Known Drug Allergies (Unverified , 07/22/21) Vitals & I&Os Vital Signs Date Time Temp Pulse Resp B/P (MAP) Pulse Ox O2 Delivery O2 Flow Rate FiO2 07/30/21 11:00 36.2 92 18 110/71 94 Room Air General Appearance: Alert, Oriented X3, Cooperative Respiratory: Clear to Auscultation Cardiovascular: Regular Rate Psych/Mental Status: Mental Status NL Hospital Course Was the Problem List Reviewed?: Yes Pt had an uneventful 9-day hospital course after he was admitted following a pelvic fracture during a horse injury. He was monitored closely. He was non- weight bearing so he managed with a wheelchair and regained enough independence bowels returned to normal and he was deemed stable to discharge with his family who is very supportive. Labs (last 24 hrs) Laboratory Tests 07/22/21 20:27: Glucometer 166H 07/23/21 05:53: White Blood Count 12.9H, Red Blood Count 3.95L, Hemoglobin 11.0L, Hematocrit 35L , Mean Corpuscular Volume 88, Mean Corpuscular Hemoglobin 28, Mean Corpuscular Hemoglobin Concent 32, Red Cell Distribution Width 13.5, Platelet Count 714H, Mean Platelet Volume 9.4, Immature Granulocyte % (Auto) 3, Neutrophils (%) (Auto) 68, Lymphocytes (%) (Auto) 18, Monocytes (%) (Auto) 9, Eosinophils (%) (Auto) 1, Basophils (%) (Auto) 1, Neutrophils # (Auto) 8.8H, Lymphocytes # (Auto) 2.3, Monocytes # (Auto) 1.2H, Eosinophils # (Auto) 0.2, Basophils # (Auto) 0.1, Immature Granulocyte # (Auto) 0.3H, Sodium Level 135, Potassium Level 4.6, Chloride Level 100, Carbon Dioxide Level 21, Anion Gap 14, Blood Urea Nitrogen 24H, Creatinine 0.86, Estimat Glomerular Filtration Rate 103, BUN/Creatinine Ratio 28, Glucose Level 96, Calcium Level 9.6, Corrected Calcium 9.8, Total Bilirubin 0.6, Aspartate Amino Transf (AST/SGOT) 34, Alanine Aminotransferase (ALT/SGPT) 42, Alkaline Phosphatase 151H, Total Protein 7.9, Albumin 3.8 07/26/21 06:00: White Blood Count 11.9H, Red Blood Count 3.99L, Hemoglobin 10.9L, Hematocrit 34L , Mean Corpuscular Volume 85, Mean Corpuscular Hemoglobin 27, Mean Corpuscular Hemoglobin Concent 32, Red Cell Distribution Width 13.4, Platelet Count 906H, Mean Platelet Volume 8.2L, Immature Granulocyte % (Auto) 1, Neutrophils (%) (Auto) 70, Lymphocytes (%) (Auto) 18, Monocytes (%) (Auto) 9, Eosinophils (%) (Auto) 1, Basophils (%) (Auto) 1, Neutrophils # (Auto) 8.4H, Lymphocytes # (Auto) 2.2, Monocytes # (Auto) 1.0, Eosinophils # (Auto) 0.1, Basophils # (Auto) 0.1, Immature Granulocyte # (Auto) 0.1, Sodium Level 133L, Potassium Level 4.5, Chloride Level 100, Carbon Dioxide Level 21, Anion Gap 12, Blood Urea Nitrogen 23H, Creatinine 0.80, Estimat Glomerular Filtration Rate 105, BUN/Creatinine Ratio 29, Glucose Level 105, Calcium Level 9.4, Corrected Calcium 9.5, Total Bilirubin 0.6, Aspartate Amino Transf (AST/SGOT) 27, Alanine Aminotransferase (ALT/SGPT) 35, Alkaline Phosphatase 191H, Total Protein 8.0, Albumin 3.9, Ne utrophils % (Manual) 75, Lymphocytes % (Manual) 17, Monocytes % (Manual) 7, Eosinophils % (Manual) 0, Basophils % (Manual) 0, Band Neutrophils 1, Percent Immature Platelet Fraction 1.1, Blood Morphology Comment NORMAL, Absolute Reticulocyte Count 75, Percent Reticulocyte Count 1.87 Pending Labs Laboratory Tests 07/22/21 20:27: Glucometer 166 07/23/21 05:53: White Blood Count 12.9, Red Blood Count 3.95, Hemoglobin 11.0, Hematocrit 35, Mean Corpuscular Volume 88, Mean Corpuscular Hemoglobin 28, Mean Corpuscular Hemoglobin Concent 32, Red Cell Distribution Width 13.5, Platelet Count 714, Mean Platelet Volume 9.4, Immature Granulocyte % (Auto) 3, Neutrophils (%) (Auto) 68, Lymphocytes (%) (Auto) 18, Monocytes (%) (Auto) 9, Eosinophils (%) (Auto) 1, Basophils (%) (Auto) 1, Neutrophils # (Auto) 8.8, Lymphocytes # (Auto) 2.3, Monocytes # (Auto) 1.2, Eosinophils # (Auto) 0.2, Basophils # (Auto) 0.1, Immature Granulocyte # (Auto) 0.3, Sodium Level 135, Potassium Level 4.6, Chloride Level 100, Carbon Dioxide Level 21, Anion Gap 14, Blood Urea Nitrogen 24, Creatinine 0.86, Estimat Glomerular Filtration Rate 103, BUN/Creatinine Ratio 28, Glucose Level 96, Calcium Level 9.6, Corrected Calcium 9.8, Total Bilirubin 0.6, Aspartate Amino Transf (AST/SGOT) 34, Alanine Aminotransferase (ALT/SGPT) 42, Alkaline Phosphatase 151, Total Protein 7.9, Albumin 3.8 07/26/21 06:00: White Blood Count 11.9, Red Blood Count 3.99, Hemoglobin 10.9, Hematocrit 34, Mean Corpuscular Volume 85, Mean Corpuscular Hemoglobin 27, Mean Corpuscular Hemoglobin Concent 32, Red Cell Distribution Width 13.4, Platelet Count 906, Mean Platelet Volume 8.2, Immature Granulocyte % (Auto) 1, Neutrophils (%) (Auto) 70, Lymphocytes (%) (Auto) 18, Monocytes (%) (Auto) 9, Eosinophils (%) (Auto) 1, Basophils (%) (Auto) 1, Neutrophils # (Auto) 8.4, Lymphocytes # (Auto) 2.2, Monocytes # (Auto) 1.0, Eosinophils # (Auto) 0.1, Basophils # (Auto) 0.1, Immature Granulocyte # (Auto) 0.1, Sodium Level 133, Potassium Level 4.5, Chloride Level 100, Carbon Dioxide Level 21, Anion Gap 12, Blood Urea Nitrogen 23, Creatinine 0.80, Estimat Glomerular Filtration Rate 105, BUN/Creatinine Ratio 29, Glucose Level 105, Calcium Level 9.4, Corrected Calcium 9.5, Total Bilirubin 0.6, Aspartate Amino Transf (AST/SGOT) 27, Alanine Aminotransferase (ALT/SGPT) 35, Alkaline Phosphatase 191, Total Protein 8.0, Albumin 3.9, Neutrophils % (Manual) 75, Lymphocytes % (Manual) 17, Monocytes % (Manual) 7, Eosinophils % (Manual) 0, Basophils % (Manual) 0, Band Neutrophils 1, Percent Immature Platelet Fraction 1.1, Blood Morphology Comment NORMAL, Absolute Reticulocyte Count 75, Percent Reticulocyte Count 1.87 Discharge Home Medications: Active Scripts Active HYDROcodone/APAP 5 MG/325 MG TAB (Acetaminophen/Hydrocodone Bitart) 1 Tab Tab 1 Tab PO Q4H PRN Diclofenac Sodium 100 Gm Gel..gram. 0 Gm TOP QID Metoprolol Succinate 25 Mg Tab.er.24h 25 Mg PO DAILY Metformin HCl 500 Mg Tablet 500 Mg PO BID Lisinopril 20 Mg Tablet 20 Mg PO DAILY Atorvastatin Calcium 40 Mg Tablet 40 Mg PO HS Reported Zinc 50 Mg Tablet 50 Mg PO DAILY Vitamin D3 (Cholecalciferol (Vitamin D3)) 25 Mcg Capsule 25 Mcg PO DAILY Multivitamin 1 Each Tablet 1 Each PO DAILY Instructions to patient/family Please see electronic discharge instructions given to patient. Diagnosis/Problems Diagnosis/Problems (1) Pelvic fracture (2) Diabetes (3) BMI 33.0-33.9,adult JORGE CRONIN DO Jul 30, 2021 06:36
[2021-07-30 07:26] VITALS: BP 110/71
[2021-07-30] MEDS: DICLOFENAC 1% GEL 100 GM (VOLTAREN) TUBE TOP SCH ×2 (07:36→11:19)
[2021-07-30] MEDS: metFORMIN 500 MG (GLUCOPHAGE) TAB PO SCH (07:36)
[2021-07-30] MEDS: lisINopril 20 MG (PRINIVIL) TABLET PO SCH (07:36)
[2021-07-30] MEDS: DOCUSATE SODIUM 100 MG (COLACE) CAP PO SCH (09:39)
[2021-07-30] MEDS: polyethylene glycoL POWDER 17 GM (MIRALAX) PACK PO SCH (09:39)
[2021-07-30] MEDS: SENNA W/DOCUSATE (SENOKOT S) TABLET PO SCH (09:40)
--- NOTE | 2021-07-30 10:38 | Therapy Team Discharge Summary ---
Therapy Discharge Summary Discharge Recommendations Date of Discharge Physical Therapy Patient came to rehab with PELVIC FX, S/P ORIF. Upon evaluation patient performed rolling with independence, supine <-> sit with SBA (using a leg computer systems designer), sliding board transfer with SBA (also does this for toilet and car transfer), and can propel a manual WC 600' with independence, including down and up a ramp. Patient has been performing bed mobility and transfer training, balance and endurance training, functional strengthening, WC mobility training, and education. Patient has made fair progress and has met his assisted goals except for transfers. Now, patient performs rolling and supine <-> sit with independence, sliding board transfer SBA, car transfer SBA, and can propel a manual WC over 600' with independence. Patient is being discharged from this facility today and will be discharged from PT at this time. Occupational Therapy Decreased Activ Tolerance, Impaired I ADL's PT Intermediate Goals Athletic Shoe Designer Goals PT Athletic Shoe Designer Goals Time Frame: Aug 12, 2021 Roll Left to Right (QC): 6 Sit to Lying (QC): 6 Lying-Sitting on Side/Bed(QC): 6 Sit to Stand (QC): 88 Chair/Pgl-my-Mllqb Xfer(QC): 6 Car Transfer (QC): 6 Does the Patient Walk: No and Walking Goal NOT indicated Walk 10 feet (QC): 88 Walk 10ft-Uneven Surface(QC): 88 Walk 50ft with 2 Turns (QC): 88 Walk 150 ft (QC): 88 Wheel 50 feet with 2 turns (QC: 6 1 Step (curb) (QC): 88 4 Steps (QC): 88 12 Steps (QC): 88 Picking up an Object (QC): 88 OT Athletic Shoe Designer Goals Athletic Shoe Designer Goals Time Frame: Aug 06, 2021 Eating (QC): 6 (met) Oral Hygiene (QC): 6 (met) Shower/Bathe Self (QC): 6 (met) Upper Body Dressing (QC): 6 (not met) Lower Body Dressing (QC): 6 (not met) On/Off Footwear (QC): 6 (not met) Toileting Hygiene (QC): 6 (met) Toilet/Commode Transfer (QC): 6 Additional Goals: 1-Demonstrate ADL Tasks, 2-Verbalize Understanding, 3- ImproveStrength/[place] 1=Demonstrate adherence to instructed precautions during ADL tasks. 2=Patient will verbalize/demonstrate understanding of assistive devices/modifications for ADL. 3=Patient will improve strength/tolerance for activity to enable patient to perform ADL's. MARNIE KNIGHT PT Jul 30, 2021 10:38
[2021-07-30 11:00] VITALS: BP 110/71
--- NOTE | 2021-07-30 11:10 | Therapy Team Discharge Summary ---
Therapy Discharge Summary Discharge Recommendations Date of Discharge Occupational Therapy Pt admitted to ARU with pelvic fractures s/p ORIF. At OF, pt was independent with all ADLs and functional mobility, no AD/AE. Upon initial evaluation, pt was independent with eating and oral care, required max A with showering, set up upper body dressing, min A lower body dressing, set up footwear and min A toileting. OT txs focused on increasing independence with SB transfers and w/c mobility due to NWB BLEs, increasing BUE Strength and activity tolerance, and increasing independence and safety with ADLs. At discharge, pt was independent with eating, oral care, showering and toileting, meeting these LTGs. He required set up assistance with UE/LE dressing and footwear. OT recommendations include a tub transfer bench, sock aide, and centrifugal extractor operator. Pt discharged from facility, d/c from OT. Decreased Activ Tolerance, Impaired I ADL's PT Coke Wheeler Goals Coke Wheeler Goals PT Coke Wheeler Goals Time Frame: Aug 12, 2021 Roll Left to Right (QC): 6 Sit to Lying (QC): 6 Lying-Sitting on Side/Bed(QC): 6 Sit to Stand (QC): 88 Chair/Lzd-ur-Fyaii Xfer(QC): 6 Car Transfer (QC): 6 Does the Patient Walk: No and Walking Goal NOT indicated Walk 10 feet (QC): 88 Walk 10ft-Uneven Surface(QC): 88 Walk 50ft with 2 Turns (QC): 88 Walk 150 ft (QC): 88 Wheel 50 feet with 2 turns (QC: 6 1 Step (curb) (QC): 88 4 Steps (QC): 88 12 Steps (QC): 88 Picking up an Object (QC): 88 OT Mcfp Goals Mcfp Goals Time Frame: Aug 06, 2021 Eating (QC): 6 (met) Oral Hygiene (QC): 6 (met) Shower/Bathe Self (QC): 6 (met) Upper Body Dressing (QC): 6 (not met) Lower Body Dressing (QC): 6 (not met) On/Off Footwear (QC): 6 (not met) Toileting Hygiene (QC): 6 (met) Toilet/Commode Transfer (QC): 6 Additional Goals: 1-Demonstrate ADL Tasks, 2-Verbalize Understanding, 3-ImproveStrength/[place] 1=Demonstrate adherence to instructed precautions during ADL tasks. 2=Patient will verbalize/demonstrate understanding of assistive devices/modifications for ADL. 3=Patient will improve strength/tolerance for activity to enable patient to perform ADL's. YAHIR CABRERA OT Jul 30, 2021 11:10
== END 2021-07-30 11:00 | disposition home health service (06) | DRG 561 ==
PROVIDERS: ADMIT Internal Medicine; ATTEND Internal Medicine
DX: S32.810D Multiple fractures of pelvis with stable disruption of pelvic ring, subsequent encounter for fracture with routine healing (principal); S32.10XD Unspecified fracture of sacrum, subsequent encounter for fracture with routine healing; S37.30XD Unspecified injury of urethra, subsequent encounter; E11.9 Type 2 diabetes mellitus without complications; I10 Essential (primary) hypertension; M25.512 Pain in left shoulder; D75.839 Thrombocytosis, unspecified; R31.9 Hematuria, unspecified; Z79.84 Long term (current) use of oral hypoglycemic drugs; V80.010D Animal-rider injured by fall from or being thrown from horse in noncollision accident, subsequent encounter
CPT/HCPCS: 36415; 80053; 82947; 85007; 85025; 85027; 85045; 85055